=== PATIENT | male | born 1965 | race African-American/Black ===

== ENCOUNTER 2018-10-16 10:27 | Inpatient (IN) | payer OTHER ==
[2018-10-16 11:15] VITALS: BMI 21.6
--- NOTE | 2018-10-16 12:34 | HP ---
CIWA Score Nausea/Vomitin Muscle Tremors: 4-Moderate,w/Arms Extend Anxiety: 4-Mod. Anxious/Guarded Agitation: 1-Slight > Activity Paroxysmal Sweats: No Perspiration Orientation: 1-Uncertain about Date Tacttile Disturbances: 1-Very Mild Itch/Numbness Auditory Disturbances: 1-Very Mild Visual Disturbances: 1-Very Mild Sensitivity Headache: 2-Mild CIWA-Ar Total Score: 17 - Admission Criteria OASAS Guidelines: Admission for Medically Managed Detox: Requires at least one of the followin. CIWA greater than 12 2. Seizures within the past 24 hours 3. Delirium tremens within the past 24 hours 4. Hallucinations within the past 24 hours 5. Acute intervention needed for co occurring medical disorder 6. Acute intervention needed for co occurring psychiatric disorder 7. Severe withdrawal that cannot be handled at a lower level of care (continued vomiting, continued diarrhea, abnormal vital signs) requiring intravenous medication and/or fluids 8. Patient presents the following: CIWA greater than 12 Admission Criteria Met: Admission criteria met Admission ROS [facility] - [facility] Chief Complaint: I want detox from alcohol Allergies/Adverse Reactions: Allergies Allergy/AdvReac Type Severity Reaction Status Date / Time No Known Allergies Allergy Verified 10/16/18 12:31 History of Present Illness: 53 yo gentleman first time here for detox from alcohol, also using cocaine and marijuana. Denies seizures but has had black outs and drinks first thing in the morning. Patient has had several admissions for detox elsewhere. He reports a history of depression, bipolar and suicide attempt. Meds verified by myself with pharmacy. Exam Limitations: No Limitations - Ebola screening Have you traveled outside of the country in the last 21 days: No (N) Have you had contact with anyone from an Ebola affected area: No Have you been sick,other than usual withdrawal symptoms: No Do you have a fever: No - Review of Systems Constitutional: Loss of Appetite, Malaise, Changes in sleep EENT: reports: No Symptoms Reported Respiratory: reports: No Symptoms reported Cardiac: reports: No Symptoms Reported GI: reports: Nausea, Poor Appetite, Indigestion Musculoskeletal: reports: No Symptoms Reported Integumentary: reports: Dryness Neuro: reports: Headache, Tremors Endocrine: reports: No Symptoms Reported Hematology: reports: No Symptoms Reported Psychiatric: reports: Judgement Intact, Mood/Affect Appropiate, Orientated x3, Anxious Other Systems: Reviewed and Negative Patient History - Patient Medical History Hx Anemia: No Hx Asthma: Yes (hx inhalers ) Hx Chronic Obstructive Pulmonary Disease (COPD): No Hx Cancer: No Hx Congestive Heart Failure: No Hx Hypertension: No Hx Hypercholesterolemia: No Hx Pacemaker: No Hx Seizures: No Hx Diabetes: No Hx Gastrointestinal Disorders: Yes (hx perforated ulcer september 2018 (surgery)) Hx Liver Disease: No Hx Genitourinary Disorders: No Hx Sexually Transmitted Disorders: No Hx Renal Disease (ESRD): No Hx Thyroid Disease: No Hx Human Immunodeficiency Virus (HIV): No Hx Hepatitis C: No Hx Depression: Yes (hospitalized [facility] 2009) Hx Suicide Attempt: Yes (2009 (pills)) Hx Bipolar Disorder: Yes Hx Schizophrenia: Yes - Patient Surgical History Hx Abdominal Surgery: Yes (stomach ulcer repair 09/2018; abdominal hernia 2009) - PPD History Previous Implant?: Yes Documented Results: Negative w/o proof PPD to be Administered?: Yes - Reproductive History Patient is a Female of Child Bearing Age (11 -55 yrs old): No (male) - Smoking Cessation Smoking history: Former smoker Have you smoked in the past 12 months: No Initiated information on smoking cessation: No - Substance & Tx. History Hx Alcohol Use: Yes Hx Substance Use: Yes Substance Use Type: Alcohol, Cocaine, Marijuana Hx Substance Use Treatment: Yes (detox, rehab) - Substances Abused alcohol Route: Oral Frequency: Daily Amount used: 1 pint vodka; two 12 oz cans beer Age of first use: 12 Date of Last Use: 10/16/18 cocaine Route: Inhalation Frequency: 3-6 times per week Amount used: $20 Age of first use: 21 Date of Last Use: 10/13/18 marijuan Route: Smoking Frequency: Daily Amount used: $10 Age of first use: 7 Date of Last Use: 10/16/18 Family Disease History - Family Disease History Family Disease History: Diabetes: Brother (two - living, ), [place]: Mother ( ), Other: Father (, no contact), Mother, Brother, Sister (one - healthy), Daughter (one age 13 - healthy) Admission Physical Exam BHS - Vital Signs Vital Signs: Vital Signs - 24 hr 10/16/18 11:03 Temperature 98.6 F Pulse Rate 82 Respiratory 18 Rate Blood Pressure 116/84 - Physical General Appearance: Yes: Nourished, Appropriately Dressed, Mild Distress, Moderate Distress, Tremorous, Irritable, Anxious HEENTM: Yes: EOMI, Hearing grossly Normal, Normocephalic, Normal Voice, Pharynx Normal Respiratory: Yes: No Respiratory Distress, Wheezing Neck: Yes: No masses,lesions,Nodules, Supple Breast: Yes: Breast Exam Deferred Cardiology: Yes: Regular Rhythm, Regular Rate Abdominal: Yes: Flat, Soft Genitourinary: Yes: Frequency Back: Yes: Normal Inspection Musculoskeletal: Yes: full range of Motion, Gait Steady Extremities: Yes: Normal Inspection, Normal Range of Motion, Non-Tender Neurological: Yes: Alert, Motor Strength 5/5, Normal Mood/Affect, Normal Response Integumentary: Yes: Normal Color, Dry, Warm Lymphatic: Yes: Within Normal Limits - Diagnostic (1) Alcohol dependence with uncomplicated withdrawal Current Visit: Yes Status: Chronic (2) History of gastric ulcer Current Visit: Yes Status: Resolved Comment: required surgery and several weeks in hospital in September 2018 (3) Asthma Current Visit: Yes Status: Chronic Qualifiers: Asthma severity: moderate Asthma persistence: persistent Asthma complication type: uncomplicated Qualified Code(s): J45.40 - Moderate persistent asthma, uncomplicated Cleared for Admission [facility] - Detox or Rehab [facility] Level of Care: Medically Managed Detox Regimen/Protocol: Librium [facility] Breath Alcohol Content Breath Alcohol Content: 0.010 Urine Drug Screen - Results Drug Screen Negative: No Urine Drug Screen Results: THC-Marijuana, ALICE-Cocaine Inpatient Rehab Admission - Rehab Decision to Admit Inpatient rehab admission?: No
[2018-10-16] MEDS ORDERED: hydrOXYzine PAMOATE 25 MG CAPSULE (FP) PO PRN (12:58)
[2018-10-16] MEDS ORDERED: BACLOFEN 10 MG TABLET (FP) PO PRN (12:58)
[2018-10-16] MEDS ORDERED: ACETAMINOPHEN 325 MG TABLET (FP) PO PRN (12:58)
[2018-10-16] MEDS ORDERED: MELATONIN 5 MG TABLETS PO PRN (12:58)
[2018-10-16] MEDS ORDERED: MAGNESIUM HYDROX 2400MG/30ML ORAL SUSPENSION 30 ML CUP PO PRN (12:58)
[2018-10-16] MEDS ORDERED: MENTHOL/PHENOL 1 EACH UD MM PRN (12:58)
[2018-10-16] MEDS ORDERED: chlordiazePOXIDE HCL 25 MG CAPSULE PO PRN (12:58)
[2018-10-16] MEDS ORDERED: ALBUTEROL SO4 8 GM HFA INHALER IH PRN (13:01)
[2018-10-16] MEDS ORDERED: chlordiazePOXIDE HCL 25 MG CAPSULE PO ONE (14:30)
[2018-10-16] MEDS: PANTOPRAZOLE 40 MG TABLET (FP) PO SCH (15:01)
[2018-10-16] MEDS: POLYETHYLENE GLYCOL 3350 119 GM BTL PO SCH ×2 (15:07→22:40)
[2018-10-16] MEDS: chlordiazePOXIDE HCL 25 MG CAPSULE PO SCH ×2 (17:12→22:39)
[2018-10-16] MEDS: THIAMINE HCL 100 MG TABLET (FP) PO SCH (22:39)
[2018-10-17] MEDS: chlordiazePOXIDE HCL 25 MG CAPSULE PO SCH ×4 (06:02→22:37)
--- NOTE | 2018-10-17 09:55 | CONSULT ---
[facility] Psychiatric Consult - Data Date of interview: 10/17/18 Admission source: [facility] Identifying data: Patient is a 53 y/o male single, unemployed, domiciled, live with a roomate, father of a girl, SSI reccipient Substance Abuse History: Admitted to the unit for a history of ETOH, marijuana and cocaine dependence , He drinks Vodka daily and beers , use cocaine 3-4 times / week daily use of marijuana. He reports black out spells, no seizure. 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 This is his melody detox admission @ [facility], he has had numerous past Detox treatment at several Detox facilities. His last Detox admission was @ [facility]. Refer to addiction counselor note for more detailed and relevant drug history Medical History: Meidcal history is significant for moderate intermittent Asthma. Recent past surgical history of gastric ulcer repaired. History of abdominal hernia in 2009 Psychiatric History: Patient has a history of Bipolar depression, he had one hospital admission @ [facility] in 2009 due to a suicide attempt he overdosed with pills. He receives out patient care at [facility] and medciated with Seroquel 100 mg po q hs and celexa 20 mg po daily. Curently he denies psychosis, kamala, or mood swings, reports depression and insomnia. He denies suicidal or homicidal ideation Physical/Sexual Abuse/Trauma History: Denied Mental Status Exam - Mental Status Exam Cognitive Function: Grossly Intact Patient Appearance: Unkempt Mood: Suspicious, Irritable Affect: Constricted Patient Behavior: Suspicious, Cooperative Speech Pattern: Clear Voice Loudness: Mildly Loud Thought Process: Intact Thought Disorder: Not Present Hallucinations: Denies Suicidal Ideation: Denies Homicidal Ideation: Denies Insight/Judgement: Poor Sleep: Poorly Appetite: Fair Muscle strength/Tone: Normal Gait/Station: Normal Psychiatric Findings - Problem List ([place] 1, 2,3) (1) Bipolar disorder with depression Current Visit: Yes Status: Acute (2) Alcohol dependence with uncomplicated withdrawal Current Visit: Yes Status: Chronic (3) Asthma Current Visit: Yes Status: Chronic Qualifiers: Asthma severity: moderate Asthma persistence: persistent Asthma complication type: uncomplicated Qualified Code(s): J45.40 - Moderate persistent asthma, uncomplicated (4) History of gastric ulcer Current Visit: Yes Status: Resolved Comment: required surgery and several weeks in hospital in September 2018 - Initial Treatment Plan Initial Treatment Plan: Continue detox treatment. Psychoseduation. Sleep hygiene. Seroquel 100 mg po q hs. Celexa 20 mg po daily. Monitor response
[2018-10-17] MEDS: PANTOPRAZOLE 40 MG TABLET (FP) PO SCH (10:12)
[2018-10-17] MEDS: POLYETHYLENE GLYCOL 3350 119 GM BTL PO SCH ×2 (10:12→22:35)
[2018-10-17] MEDS: PRENATAL VITAMINS W/ FOLIC ACID TABLET (FP) PO SCH (10:12)
[2018-10-17 11:14] LABS: ALBUMIN 2.8 g/dl (3.4-5.0); ALK PHOS 67 U/L (45-117); ANION GAP 4 MMOL/L (8-16); BILIRUBIN,TOTAL 0.2 mg/dL (0.2-1); BLOOD UREA NITROGEN 14 mg/dL (7-18); CALCIUM 8.5 mg/dL (8.5-10.1); CHLORIDE 110 mmol/L (98-107); CO2 28 mmol/L (21-32); GLUCOSE,RANDOM 83 mg/dL (74-106); POTASSIUM 4.1 mmol/L (3.5-5.1); SGOT/AST 27 U/L (15-37); SGPT/ALT 29 U/L (13-61); SODIUM 142 mmol/L (136-145); TOT PROT 6.6 g/dl (6.4-8.2)
[2018-10-17 11:24] LABS: HEMOGLOBIN 12.5 GM/dL (11.7-16.9); MCH 27.9 pg (25.7-33.7); MCHC 32.9 g/dl (32.0-35.9); MEAN CELL VOLUME 84.7 fl (80-96); MEAN PLT VOLUME 9.9 fl (7.5-11.1); PLATELET COUNT 204 K/MM3 (134-434); RBC 4.49 M/mm3 (4.00-5.60); RDW 15.1 % (11.9-15.9)
[2018-10-17] MEDS: CITALOPRAM HYDROBROMIDE 20 MG TABLET (FP) PO SCH (13:19)
--- NOTE | 2018-10-17 14:44 | PN ---
S CIWA - CIWA Score Nausea/Vomitin-No Nausea/No Vomiting Muscle Tremors: 3 Anxiety: 1-Mildly Anxious Agitation: 2 Paroxysmal Sweats: 1-Minimal Palms Moist Orientation: 3-Disoriented Date>2 days Tacttile Disturbances: 0-None Auditory Disturbances: 0-None Visual Disturbances: 0-None Headache: 2-Mild CIWA-Ar Total Score: 12 S Progress Note (SOAP) Subjective: tremor sweating restlessness trouble sleep at night Objective: 10/17/18 14:48 Vital Signs Temperature 97.4 F L 10/17/18 13:47 Pulse Rate 71 10/17/18 13:47 Respiratory Rate 20 10/17/18 13:47 Blood Pressure 157/101 H 10/17/18 13:47 O2 Sat by Pulse Oximetry (%) Laboratory Last Values WBC 4.0 K/mm3 (4.0-10.0) 10/17/18 07:35 RBC 4.49 M/mm3 (4.00-5.60) 10/17/18 07:35 Hgb 12.5 GM/dL (11.7-16.9) 10/17/18 07:35 Hct 38.0 % (35.4-49) 10/17/18 07:35 MCV 84.7 fl (80-96) 10/17/18 07:35 MCH 27.9 pg (25.7-33.7) 10/17/18 07:35 MCHC 32.9 g/dl (32.0-35.9) 10/17/18 07:35 RDW 15.1 % (11.9-15.9) 10/17/18 07:35 Plt Count 204 K/MM3 (134-434) 10/17/18 07:35 MPV 9.9 fl (7.5-11.1) 10/17/18 07:35 Sodium 142 mmol/L (136-145) 10/17/18 07:35 Potassium 4.1 mmol/L (3.5-5.1) 10/17/18 07:35 Chloride 110 mmol/L (98-107) H 10/17/18 07:35 Carbon Dioxide 28 mmol/L (21-32) 10/17/18 07:35 Anion Gap 4 MMOL/L (8-16) L 10/17/18 07:35 BUN 14 mg/dL (7-18) 10/17/18 07:35 Creatinine 1.0 mg/dL (0.55-1.3) 10/17/18 07:35 Creat Clearance w eGFR 77.58 (>60) 10/17/18 07:35 Random Glucose 83 mg/dL (74-106) 10/17/18 07:35 Calcium 8.5 mg/dL (8.5-10.1) 10/17/18 07:35 Total Bilirubin 0.2 mg/dL (0.2-1) 10/17/18 07:35 AST 27 U/L (15-37) 10/17/18 07:35 ALT 29 U/L (13-61) 10/17/18 07:35 Alkaline Phosphatase 67 U/L (45-117) 10/17/18 07:35 Total Protein 6.6 g/dl (6.4-8.2) 10/17/18 07:35 Albumin 2.8 g/dl (3.4-5.0) L 10/17/18 07:35 RPR Titer Nonreactive (NONREACTIVE) 10/17/18 07:35 lab noted Assessment: 10/17/18 14:48 alcohol withdrawal sx Plan: continue detox
[2018-10-17] MEDS: THIAMINE HCL 100 MG TABLET (FP) PO SCH (22:33)
[2018-10-17] MEDS: QUEtiapine FUMARATE 100 MG TABLET (FP) PO SCH (22:34)
--- NOTE | 2018-10-17 23:48 | PN ---
[facility] Progress Note Note: I was called by the nurse, Ms. Alana Islas to evaluate a patient who was upset because she wanted to open his librium prior to administration. He was seen and evaluated in his room. Nursing machining and assembly supervisor Ms. Alysia Benito wanted patient to be either transferred to [place] or administratively discharged. Patient has a history of schizophrenia and Bipolar but is not a danger to himself or others at this time. He is medically stable at this time and there is no psychiatric incident to send patient out at this time. Risks and consequences of his action discussed with patient. Will continue to monitor patient Vital Signs Temperature 98.1 F 10/17/18 21:31 Pulse Rate 80 10/17/18 21:31 Respiratory Rate 18 10/17/18 21:31 Blood Pressure 142/98 10/17/18 21:31 O2 Sat by Pulse Oximetry (%) Laboratory Last Values WBC 4.0 K/mm3 (4.0-10.0) 10/17/18 07:35 RBC 4.49 M/mm3 (4.00-5.60) 10/17/18 07:35 Hgb 12.5 GM/dL (11.7-16.9) 10/17/18 07:35 Hct 38.0 % (35.4-49) 10/17/18 07:35 MCV 84.7 fl (80-96) 10/17/18 07:35 MCH 27.9 pg (25.7-33.7) 10/17/18 07:35 MCHC 32.9 g/dl (32.0-35.9) 10/17/18 07:35 RDW 15.1 % (11.9-15.9) 10/17/18 07:35 Plt Count 204 K/MM3 (134-434) 10/17/18 07:35 MPV 9.9 fl (7.5-11.1) 10/17/18 07:35 Sodium 142 mmol/L (136-145) 10/17/18 07:35 Potassium 4.1 mmol/L (3.5-5.1) 10/17/18 07:35 Chloride 110 mmol/L (98-107) H 10/17/18 07:35 Carbon Dioxide 28 mmol/L (21-32) 10/17/18 07:35 Anion Gap 4 MMOL/L (8-16) L 10/17/18 07:35 BUN 14 mg/dL (7-18) 10/17/18 07:35 Creatinine 1.0 mg/dL (0.55-1.3) 10/17/18 07:35 Creat Clearance w eGFR 77.58 (>60) 10/17/18 07:35 Random Glucose 83 mg/dL (74-106) 10/17/18 07:35 Calcium 8.5 mg/dL (8.5-10.1) 10/17/18 07:35 Total Bilirubin 0.2 mg/dL (0.2-1) 10/17/18 07:35 AST 27 U/L (15-37) 10/17/18 07:35 ALT 29 U/L (13-61) 10/17/18 07:35 Alkaline Phosphatase 67 U/L (45-117) 10/17/18 07:35 Total Protein 6.6 g/dl (6.4-8.2) 10/17/18 07:35 Albumin 2.8 g/dl (3.4-5.0) L 10/17/18 07:35 RPR Titer Nonreactive (NONREACTIVE) 10/17/18 07:35
[2018-10-18] MEDS: chlordiazePOXIDE HCL 25 MG CAPSULE PO SCH ×2 (06:55→10:24)
[2018-10-18] MEDS: POLYETHYLENE GLYCOL 3350 119 GM BTL PO SCH ×2 (10:23→22:41)
[2018-10-18] MEDS: PRENATAL VITAMINS W/ FOLIC ACID TABLET (FP) PO SCH (10:23)
[2018-10-18] MEDS: PANTOPRAZOLE 40 MG TABLET (FP) PO SCH (10:23)
[2018-10-18] MEDS: CITALOPRAM HYDROBROMIDE 20 MG TABLET (FP) PO SCH (10:23)
--- NOTE | 2018-10-18 12:06 | PN ---
S CIWA - CIWA Score Nausea/Vomitin-No Nausea/No Vomiting Muscle Tremors: 2 Anxiety: 2 Agitation: 1-Slight > Activity Paroxysmal Sweats: 1-Minimal Palms Moist Orientation: 2-Disoriented Date<2 days Tacttile Disturbances: 0-None Auditory Disturbances: 0-None Visual Disturbances: 0-None Headache: 0-None Present CIWA-Ar Total Score: 8 BHS Progress Note (SOAP) Subjective: tremor sweating requesting librium swallow as whole Objective: 10/18/18 12:08 Vital Signs Temperature 98.2 F 10/18/18 09:03 Pulse Rate 74 10/18/18 09:03 Respiratory Rate 18 10/18/18 09:03 Blood Pressure 122/76 10/18/18 09:03 O2 Sat by Pulse Oximetry (%) Laboratory Last Values WBC 4.0 K/mm3 (4.0-10.0) 10/17/18 07:35 RBC 4.49 M/mm3 (4.00-5.60) 10/17/18 07:35 Hgb 12.5 GM/dL (11.7-16.9) 10/17/18 07:35 Hct 38.0 % (35.4-49) 10/17/18 07:35 MCV 84.7 fl (80-96) 10/17/18 07:35 MCH 27.9 pg (25.7-33.7) 10/17/18 07:35 MCHC 32.9 g/dl (32.0-35.9) 10/17/18 07:35 RDW 15.1 % (11.9-15.9) 10/17/18 07:35 Plt Count 204 K/MM3 (134-434) 10/17/18 07:35 MPV 9.9 fl (7.5-11.1) 10/17/18 07:35 Sodium 142 mmol/L (136-145) 10/17/18 07:35 Potassium 4.1 mmol/L (3.5-5.1) 10/17/18 07:35 Chloride 110 mmol/L (98-107) H 10/17/18 07:35 Carbon Dioxide 28 mmol/L (21-32) 10/17/18 07:35 Anion Gap 4 MMOL/L (8-16) L 10/17/18 07:35 BUN 14 mg/dL (7-18) 10/17/18 07:35 Creatinine 1.0 mg/dL (0.55-1.3) 10/17/18 07:35 Creat Clearance w eGFR 77.58 (>60) 10/17/18 07:35 Random Glucose 83 mg/dL (74-106) 10/17/18 07:35 Calcium 8.5 mg/dL (8.5-10.1) 10/17/18 07:35 Total Bilirubin 0.2 mg/dL (0.2-1) 10/17/18 07:35 AST 27 U/L (15-37) 10/17/18 07:35 ALT 29 U/L (13-61) 10/17/18 07:35 Alkaline Phosphatase 67 U/L (45-117) 10/17/18 07:35 Total Protein 6.6 g/dl (6.4-8.2) 10/17/18 07:35 Albumin 2.8 g/dl (3.4-5.0) L 10/17/18 07:35 RPR Titer Nonreactive (NONREACTIVE) 10/17/18 07:35 lab noted Assessment: 10/18/18 12:08 withdrawal sx Plan: continue detox
[2018-10-18] MEDS ORDERED: chlordiazePOXIDE HCL 10 MG CAPSULE PO PRN (17:00)
[2018-10-18] MEDS: chlordiazePOXIDE HCL 10 MG CAPSULE PO SCH ×2 (17:16→22:16)
[2018-10-18] MEDS: THIAMINE HCL 100 MG TABLET (FP) PO SCH (22:16)
[2018-10-18] MEDS: QUEtiapine FUMARATE 100 MG TABLET (FP) PO SCH (22:16)
[2018-10-19] MEDS: chlordiazePOXIDE HCL 10 MG CAPSULE PO SCH ×2 (06:50→11:38)
[2018-10-19] MEDS ORDERED: LISINOPRIL 5 MG TABLET (FP) PO SCH (10:00)
--- NOTE | 2018-10-19 10:00 | PN ---
S CIWA - CIWA Score Nausea/Vomitin-No Nausea/No Vomiting Muscle Tremors: 1-None Visible, but [place] Anxiety: 1-Mildly Anxious Agitation: 1-Slight > Activity Paroxysmal Sweats: No Perspiration Orientation: 0-Oriented Tacttile Disturbances: 0-None Auditory Disturbances: 0-None Visual Disturbances: 0-None Headache: 0-None Present CIWA-Ar Total Score: 3 BHS Progress Note (SOAP) Subjective: feeling better less tremor mild sweating social with peers in day room reporting doing well with the detox regimen Objective: 10/19/18 10:03 Vital Signs Temperature 96.4 F L 10/19/18 09:26 Pulse Rate 70 10/19/18 09:26 Respiratory Rate 18 10/19/18 09:26 Blood Pressure 146/90 10/19/18 09:26 O2 Sat by Pulse Oximetry (%) Laboratory Last Values WBC 4.0 K/mm3 (4.0-10.0) 10/17/18 07:35 RBC 4.49 M/mm3 (4.00-5.60) 10/17/18 07:35 Hgb 12.5 GM/dL (11.7-16.9) 10/17/18 07:35 Hct 38.0 % (35.4-49) 10/17/18 07:35 MCV 84.7 fl (80-96) 10/17/18 07:35 MCH 27.9 pg (25.7-33.7) 10/17/18 07:35 MCHC 32.9 g/dl (32.0-35.9) 10/17/18 07:35 RDW 15.1 % (11.9-15.9) 10/17/18 07:35 Plt Count 204 K/MM3 (134-434) 10/17/18 07:35 MPV 9.9 fl (7.5-11.1) 10/17/18 07:35 Sodium 142 mmol/L (136-145) 10/17/18 07:35 Potassium 4.1 mmol/L (3.5-5.1) 10/17/18 07:35 Chloride 110 mmol/L (98-107) H 10/17/18 07:35 Carbon Dioxide 28 mmol/L (21-32) 10/17/18 07:35 Anion Gap 4 MMOL/L (8-16) L 10/17/18 07:35 BUN 14 mg/dL (7-18) 10/17/18 07:35 Creatinine 1.0 mg/dL (0.55-1.3) 10/17/18 07:35 Creat Clearance w eGFR 77.58 (>60) 10/17/18 07:35 Random Glucose 83 mg/dL (74-106) 10/17/18 07:35 Calcium 8.5 mg/dL (8.5-10.1) 10/17/18 07:35 Total Bilirubin 0.2 mg/dL (0.2-1) 10/17/18 07:35 AST 27 U/L (15-37) 10/17/18 07:35 ALT 29 U/L (13-61) 10/17/18 07:35 Alkaline Phosphatase 67 U/L (45-117) 10/17/18 07:35 Total Protein 6.6 g/dl (6.4-8.2) 10/17/18 07:35 Albumin 2.8 g/dl (3.4-5.0) L 10/17/18 07:35 RPR Titer Nonreactive (NONREACTIVE) 10/17/18 07:35 lab noted begin lisinopril 5 mg daily Assessment: 10/19/18 10:04 mild alcohol withdrawal sx Plan: continue deox
[2018-10-19 11:29] LABS: URINE APPEARANCE CLEAR; URINE BILIRUBIN NEGATIVE (<2.0 mg/dL); URINE COLOR LTYELLOW; URINE GLUCOSE (UA) NEGATIVE (NEGATIVE); URINE KETONE NEGATIVE (NEGATIVE); URINE LEUK ESTERASE NEGATIVE (NEGATIVE); URINE NITRITE NEGATIVE (NEGATIVE); URINE PROTEIN NEGATIVE (NEGATIVE); URINE UROBILINOGEN NEGATIVE mg/dL (0.2-1.0)
[2018-10-19] MEDS: CITALOPRAM HYDROBROMIDE 20 MG TABLET (FP) PO SCH (11:38)
[2018-10-19] MEDS: PANTOPRAZOLE 40 MG TABLET (FP) PO SCH (11:38)
[2018-10-19] MEDS: PRENATAL VITAMINS W/ FOLIC ACID TABLET (FP) PO SCH (11:39)
[2018-10-19 13:36] VITALS: BP 143/95; PULSE 78; TEMP 97
[2018-10-19] MEDS: POLYETHYLENE GLYCOL 3350 119 GM BTL PO SCH (15:29)
--- NOTE | 2018-10-19 15:54 | DS ---
[facility] Detox Discharge Summary Admission Date: 10/16/18 Discharge Date: 10/19/18 - History Present History: Alcohol Dependence Additional Comments: 53 years old male admitted 10/16/18 for alcohol withdrawal stabilization after lunch and nap reporting feeling better preferring alcohol rehab today patent is alert no acute distress denies suicidal ideation - Physical Exam Results Vital Signs: Vital Signs Temperature 97.0 F L 10/19/18 13:34 Pulse Rate 78 10/19/18 13:34 Respiratory Rate 20 10/19/18 13:34 Blood Pressure 143/95 10/19/18 13:34 O2 Sat by Pulse Oximetry (%) Pertinent Admission Physical Exam Findings: alohol withdrawal sx Laboratory Last Values WBC 4.0 K/mm3 (4.0-10.0) 10/17/18 07:35 RBC 4.49 M/mm3 (4.00-5.60) 10/17/18 07:35 Hgb 12.5 GM/dL (11.7-16.9) 10/17/18 07:35 Hct 38.0 % (35.4-49) 10/17/18 07:35 MCV 84.7 fl (80-96) 10/17/18 07:35 MCH 27.9 pg (25.7-33.7) 10/17/18 07:35 MCHC 32.9 g/dl (32.0-35.9) 10/17/18 07:35 RDW 15.1 % (11.9-15.9) 10/17/18 07:35 Plt Count 204 K/MM3 (134-434) 10/17/18 07:35 MPV 9.9 fl (7.5-11.1) 10/17/18 07:35 Sodium 142 mmol/L (136-145) 10/17/18 07:35 Potassium 4.1 mmol/L (3.5-5.1) 10/17/18 07:35 Chloride 110 mmol/L (98-107) H 10/17/18 07:35 Carbon Dioxide 28 mmol/L (21-32) 10/17/18 07:35 Anion Gap 4 MMOL/L (8-16) L 10/17/18 07:35 BUN 14 mg/dL (7-18) 10/17/18 07:35 Creatinine 1.0 mg/dL (0.55-1.3) 10/17/18 07:35 Creat Clearance w eGFR 77.58 (>60) 10/17/18 07:35 Random Glucose 83 mg/dL (74-106) 10/17/18 07:35 Calcium 8.5 mg/dL (8.5-10.1) 10/17/18 07:35 Total Bilirubin 0.2 mg/dL (0.2-1) 10/17/18 07:35 AST 27 U/L (15-37) 10/17/18 07:35 ALT 29 U/L (13-61) 10/17/18 07:35 Alkaline Phosphatase 67 U/L (45-117) 10/17/18 07:35 Total Protein 6.6 g/dl (6.4-8.2) 10/17/18 07:35 Albumin 2.8 g/dl (3.4-5.0) L 10/17/18 07:35 Urine Color Ltyellow 10/19/18 10:20 Urine Appearance Clear 10/19/18 10:20 Urine pH 6.0 (5.0-8.0) 10/19/18 10:20 Ur Specific [place] 1.017 (1.010-1.035) 10/19/18 10:20 Urine Protein Negative (NEGATIVE) 10/19/18 10:20 Urine Glucose (UA) Negative (NEGATIVE) 10/19/18 10:20 Urine Ketones Negative (NEGATIVE) 10/19/18 10:20 Urine Blood Negative (NEGATIVE) 10/19/18 10:20 Urine Nitrite Negative (NEGATIVE) 10/19/18 10:20 Urine Bilirubin Negative (<2.0 mg/dL) 10/19/18 10:20 Urine Urobilinogen Negative mg/dL (0.2-1.0) 10/19/18 10:20 Ur Leukocyte Esterase Negative (NEGATIVE) 10/19/18 10:20 RPR Titer Nonreactive (NONREACTIVE) 10/17/18 07:35 lab noted - Treatment Hospital Course: Detox Protocol Followed, Detoxed Safely, Responded well, Discharged Condition Good, Rehab Referral Accepted - Medication Discharge Medications: Ambulatory Orders Citalopram Hydrobromide [Celexa -] 20 mg PO DAILY 10/16/18 Pantoprazole Sodium [Protonix] 40 mg PO DAILY 10/16/18 Quetiapine Fumarate [Seroquel] 100 tab PO BID 10/16/18 Albuterol Sulfate Inhaler - [Ventolin HFA Inhaler -] 2 puff IH Q4H PRN #1 inhaler 10/19/18 Lisinopril 5 mg PO DAILY 10/19/18 Lisinopril [Prinivil] 5 mg PO DAILY #14 tablet 10/19/18 - Diagnosis (1) Alcohol dependence with uncomplicated withdrawal Current Visit: Yes Status: Acute (2) Asthma Current Visit: Yes Status: Chronic Qualifiers: Asthma severity: mild Asthma persistence: intermittent Asthma complication type: uncomplicated Qualified Code(s): J45.20 - Mild intermittent asthma, uncomplicated (3) Hypertension Current Visit: Yes Status: Chronic Qualifiers: Hypertension type: essential hypertension Qualified Code(s): I10 - Essential (primary) hypertension (4) GERD (gastroesophageal reflux disease) Current Visit: Yes Status: Chronic Qualifiers: Esophagitis presence: without esophagitis Qualified Code(s): K21.9 - Gastro -esophageal reflux disease without esophagitis - AMA Did Patient Leave Against Medical Advice: No
[2018-10-19] MEDS ORDERED: chlordiazePOXIDE HCL 10 MG CAPSULE PO SCH (17:00)
== END 2018-10-19 16:15 | disposition home or self-care (01) | DRG 774 ==
LOC: YASAS 10:27 → Y3N 14:20
PROVIDERS: ADMIT Surgery; ATTEND Surgery
PROC: HZ2ZZZZ Detoxification Services for Substance Abuse Treatment (ICD-10-PCS; principal; 2018-10-16)
DX: F10.230 Alcohol dependence with withdrawal, uncomplicated (principal); F14.10 Cocaine abuse, uncomplicated; F12.10 Cannabis abuse, uncomplicated; F31.9 Bipolar disorder, unspecified; I10 Essential (primary) hypertension; K21.9 Gastro-esophageal reflux disease without esophagitis; J45.20 Mild intermittent asthma, uncomplicated; Z87.19 Personal history of other diseases of the digestive system; Z91.5 Personal history of self-harm
CPT/HCPCS: 36415; 80053; 81003; 85027; 86593

== ENCOUNTER 2019-01-15 15:06 | Inpatient (IN) | payer OTHER ==
[2019-01-15 17:21] VITALS: BMI 22.8
--- NOTE | 2019-01-15 18:59 | HP ---
CIWA Score Nausea/Vomitin Muscle Tremors: 2 Anxiety: 2 Agitation: 2 Paroxysmal Sweats: 2 Orientation: 0-Oriented Tacttile Disturbances: 2-Mild Itch/Numbness/Burn Auditory Disturbances: 0-None Visual Disturbances: 2-Mild Sensitivity Headache: 0-None Present CIWA-Ar Total Score: 14 - Admission Criteria OASAS Guidelines: Admission for Medically Managed Detox: Requires at least one of the followin. CIWA greater than 12 2. Seizures within the past 24 hours 3. Delirium tremens within the past 24 hours 4. Hallucinations within the past 24 hours 5. Acute intervention needed for co occurring medical disorder 6. Acute intervention needed for co occurring psychiatric disorder 7. Severe withdrawal that cannot be handled at a lower level of care (continued vomiting, continued diarrhea, abnormal vital signs) requiring intravenous medication and/or fluids 8. Patient presents the following: CIWA greater than 12 Admission Criteria Met: Admission criteria met Admission ROS [facility] Chief Complaint: I need to stop using illegal substances Allergies/Adverse Reactions: Allergies Allergy/AdvReac Type Severity Reaction Status Date / Time No Known Allergies Allergy Verified 01/15/19 17:07 History of Present Illness: Patient is a 53 years old man who presents for detox, his most recent detox was in October of this year at this facility. He denies seizures but has had black outs and drinks first thing in the morning. Patient has had several admissions for detox in other facilities. He has expressed an interest in rehab following his detox. Exam Limitations: No Limitations - Ebola screening Have you traveled outside of the country in the last 21 days: No (N) Have you had contact with anyone from an Ebola affected area: No Have you been sick,other than usual withdrawal symptoms: No Do you have a fever: No - Review of Systems Constitutional: Chills, Changes in sleep, Unintentional Wgt. Loss EENT: reports: No Symptoms Reported Respiratory: reports: No Symptoms reported Cardiac: reports: No Symptoms Reported GI: reports: Nausea, Poor Fluid Intake, Abdominal cramping : reports: No Symptoms Reported Musculoskeletal: reports: Back Pain, Joint Pain, Muscle Pain Integumentary: reports: Flushing, Rash (diffuse) Neuro: reports: Numbness, Tremors Endocrine: reports: No Symptoms Reported Hematology: reports: Anemia Psychiatric: reports: Orientated x3, Anxious, Depressed Other Systems: Reviewed and Negative Patient History - Patient Medical History Hx Anemia: No Hx Asthma: Yes Hx Chronic Obstructive Pulmonary Disease (COPD): No Hx Cancer: No Hx Congestive Heart Failure: No Hx Hypertension: No Hx Hypercholesterolemia: No Hx Pacemaker: No Hx Seizures: No Hx Diabetes: No Hx Gastrointestinal Disorders: Yes (hx perforated ulcer september 2018 (surgery)) Hx Liver Disease: No Hx Genitourinary Disorders: No Hx Sexually Transmitted Disorders: No Hx Renal Disease (ESRD): No Hx Thyroid Disease: No Hx Human Immunodeficiency Virus (HIV): No Hx Hepatitis C: No Hx Depression: Yes (hospitalized [facility] 2009) Hx Suicide Attempt: Yes (2009 (pills)) Hx Bipolar Disorder: Yes Hx Schizophrenia: Yes - Patient Surgical History Past Surgical History: Yes Hx Abdominal Surgery: Yes (stomach ulcer repair 09/2018; abdominal hernia 2009) Anesthesia Reaction: No - PPD History Previous Implant?: Yes Documented Results: Negative w/proof Implanted On Prior R Admission?: Yes Date: 10/18/18 Results: negative PPD to be Administered?: No - Smoking Cessation Smoking history: Current every day smoker Have you smoked in the past 12 months: Yes Aproximately how many cigarettes per day: 2 Hx Chewing Tobacco Use: No Initiated information on smoking cessation: Yes 'Breaking Loose' booklet given: 01/15/19 - Substance & Tx. History Hx Alcohol Use: Yes Hx Substance Use: Yes Substance Use Type: Alcohol, Cocaine, Marijuana Hx Substance Use Treatment: Yes - Substances abused Marijuana/Hashish Substance route: Smoking Frequency: Daily Amount used: 5 Age of first use: 7 Date of last use: 01/15/19 Alcohol Substance route: Oral Frequency: Daily Amount used: 2 (12) oz, 1 pint Age of first use: 10 Date of last use: 01/15/19 Cocaine Substance route: Inhalation Frequency: 1-3 times last 30 days Amount used: 1 gram Age of first use: 12 Date of last use: 01/15/19 Crack Substance route: Smoking Frequency: 3-6 times per week Amount used: $50 Age of first use: 21 Date of last use: 01/15/19 Family Disease History - Family Disease History Family Disease History: Diabetes: Brother (two - living, ), CA: Mother ( ), Other: Father (, no contact), Mother, Brother, Sister (one - healthy), Daughter (one age 13 - healthy) Admission Physical Exam [facility] - Vital Signs Vital Signs: Vital Signs - 24 hr 01/15/19 01/15/19 17:04 18:03 Temperature 97.1 F L 97.1 F L Pulse Rate 78 78 Respiratory 17 17 Rate Blood Pressure 138/93 138/93 - Physical General Appearance: Yes: No Apparent Distress HEENTM: Yes: Hearing grossly Normal, Normocephalic, Normal Voice, Nasal Congestion Respiratory: Yes: Chest Non-Tender, Lungs Clear, Normal Breath Sounds, No Respiratory Distress, No Accessory Muscle Use Neck: Yes: No masses,lesions,Nodules, Supple Breast: Yes: Breast Exam Deferred Cardiology: Yes: Regular Rhythm, Regular Rate, S1, S2 Abdominal: Yes: Normal Bowel Sounds, Non Tender, Soft, Surgical Scar Genitourinary: Yes: Within Normal Limits Back: Yes: Normal Inspection Musculoskeletal: Yes: full range of Motion, Back pain Extremities: Yes: Tremors Neurological: Yes: Fully Oriented, Alert, Normal Mood/Affect, Normal Response Integumentary: Yes: Clammy, Other (rash) Lymphatic: Yes: Within Normal Limits - Diagnostic (1) Alcohol dependence with uncomplicated withdrawal Current Visit: Yes Status: Acute (2) Bipolar disorder with depression Current Visit: No Status: Chronic (3) Asthma Current Visit: No Status: Chronic Qualifiers: Asthma severity: mild Asthma persistence: intermittent Asthma complication type: uncomplicated Qualified Code(s): J45.20 - Mild intermittent asthma, uncomplicated (4) GERD (gastroesophageal reflux disease) Current Visit: No Status: Chronic Qualifiers: Esophagitis presence: without esophagitis Qualified Code(s): K21.9 - Gastro -esophageal reflux disease without esophagitis (5) Hypertension Current Visit: Yes Status: Chronic Qualifiers: Hypertension type: essential hypertension Qualified Code(s): I10 - Essential (primary) hypertension Cleared for Admission S - Detox or Rehab [facility] Level of Care: Medically Managed Detox Regimen/Protocol: Librium Claeared for Rehab Admission: No Breathalyzer - Breathalyzer Breathalyzer: 0 Urine Drug Screen - Test Device Lot number: [id number] Expiration date: 09/30/20 - Control Is test valid?: Yes - Results Drug screen NEGATIVE: No Urine drug screen results: THC-Marijuana, ALICE-Cocaine Inpatient Rehab Admission - Rehab Decision to Admit Inpatient rehab admission?: No
[2019-01-15] MEDS ORDERED: ONDANSETRON *ODT* 4 MG TABLET SL PRN (19:11)
[2019-01-15] MEDS ORDERED: P-EPHED 60MG/TRIPROLIDI 2.5MG TABLET PO PRN (19:11)
[2019-01-15] MEDS ORDERED: MAGNESIUM CITRATE 300 ML BOTTLE PO PRN (19:11)
[2019-01-15] MEDS ORDERED: METHOCARBAMOL 500 MG TABLET PO PRN (19:11)
[2019-01-15] MEDS ORDERED: BISMUTH SUBSALICYLATE 524 MG/30 ML UD PO PRN (19:11)
[2019-01-15] MEDS ORDERED: hydrOXYzine PAMOATE 50 MG CAPSULE (FP) PO PRN (19:11)
[2019-01-15] MEDS ORDERED: IBUPROFEN 400 MG TABLET (FP) PO PRN (19:11)
[2019-01-15] MEDS ORDERED: MAGNESIUM HYDROX 2400MG/30ML ORAL SUSPENSION 30 ML CUP PO PRN (19:11)
[2019-01-15] MEDS ORDERED: ACETAMINOPHEN 325 MG TABLET (FP) PO PRN ×2 (19:11)
[2019-01-15] MEDS ORDERED: MENTHOL/PHENOL 1 EACH UD MM PRN (19:11)
[2019-01-15] MEDS ORDERED: MAG HYDROX/AL HYDROX/SIMETH 30 ML UNIT-DOSE CUP PO PRN (19:11)
[2019-01-15] MEDS ORDERED: MINERAL OIL/PETROLAT/WATER TOPICAL CREAM 454 GM JAR TP PRN (19:16)
[2019-01-15] MEDS: chlordiazePOXIDE HCL 25 MG CAPSULE PO SCH (21:36)
[2019-01-15] MEDS: THIAMINE HCL 100 MG TABLET (FP) PO SCH (21:38)
[2019-01-15] MEDS: MELATONIN 5 MG TABLETS PO PRN (22:42)
[2019-01-16] MEDS: chlordiazePOXIDE HCL 25 MG CAPSULE PO SCH ×2 (05:53→12:33)
[2019-01-16] MEDS ORDERED: COLLOIDAL OATMEAL 1 EACH PACKET TP SCH (10:00)
[2019-01-16] MEDS: PRENATAL VITAMINS W/ FOLIC ACID TABLET (FP) PO SCH (10:15)
[2019-01-16] MEDS ORDERED: COLLOIDAL OATMEAL 1 BAR EACH TP PRN (10:18)
[2019-01-16 11:02] LABS: ALBUMIN 3.2 g/dl (3.4-5.0); BILIRUBIN,TOTAL 0.2 mg/dL (0.2-1); BLOOD UREA NITROGEN 16.2 mg/dL (7-18); CALCIUM 8.9 mg/dL (8.5-10.1); CREATININE 1.1 mg/dL (0.55-1.3); POTASSIUM 3.7 mmol/L (3.5-5.1); TOT PROT 6.6 g/dl (6.4-8.2)
[2019-01-16 11:22] LABS: HEMATOCRIT 48.6 % (35.4-49); HEMOGLOBIN 15.5 GM/dL (11.7-16.9); MCH 27.1 pg (25.7-33.7); MEAN CELL VOLUME 84.7 fl (80-96); MEAN PLT VOLUME 10.7 fl (7.5-11.1); RBC 5.74 M/mm3 (4.00-5.60); RDW 16.6 % (11.9-15.9)
[2019-01-16 11:32] LABS: PLATELET COUNT 182 K/MM3 (134-434)
--- NOTE | 2019-01-16 12:39 | PN ---
[facility] CIWA - CIWA Score Nausea/Vomitin-No Nausea/No Vomiting Muscle Tremors: 3 Anxiety: 3 Agitation: 3 Paroxysmal Sweats: 2 Orientation: 0-Oriented Tacttile Disturbances: 0-None Auditory Disturbances: 0-None Visual Disturbances: 0-None Headache: 0-None Present CIWA-Ar Total Score: 11 S Progress Note (SOAP) Subjective: sweats shakes interrupted sleep dry/rash skin to chest and back Objective: 01/16/19 12:37 Vital Signs Temperature 98.1 F 01/16/19 09:22 Pulse Rate 67 01/16/19 09:22 Respiratory Rate 16 01/16/19 09:22 Blood Pressure 130/95 01/16/19 09:22 O2 Sat by Pulse Oximetry (%) Laboratory Tests 01/16/19 01/16/19 01/16/19 07:30 07:30 07:30 WBC 4.0 RBC 5.74 H Hgb 15.5 Hct 48.6 D MCV 84.7 MCH 27.1 MCHC 32.0 RDW 16.6 H Plt Count 182 MPV 10.7 Sodium 142 Potassium 3.7 Chloride 107 Carbon Dioxide 27 Anion Gap 7 L BUN 16.2 Creatinine 1.1 Est GFR (CKD-EPI)AfAm 87.13 Est GFR (CKD-EPI)NonAf 75.17 Random Glucose 118 H Calcium 8.9 Total Bilirubin 0.2 AST 20 ALT 26 Alkaline Phosphatase 66 Total Protein 6.6 Albumin 3.2 L RPR Titer Nonreactive aaox3 ambulating no acute distress Assessment: 01/16/19 12:38 Vital Signs Temperature 98.1 F 01/16/19 09:22 Pulse Rate 67 01/16/19 09:22 Respiratory Rate 16 01/16/19 09:22 Blood Pressure 130/95 01/16/19 09:22 O2 Sat by Pulse Oximetry (%) Laboratory Tests 01/16/19 01/16/19 01/16/19 07:30 07:30 07:30 WBC 4.0 RBC 5.74 H Hgb 15.5 Hct 48.6 D MCV 84.7 MCH 27.1 MCHC 32.0 RDW 16.6 H Plt Count 182 MPV 10.7 Sodium 142 Potassium 3.7 Chloride 107 Carbon Dioxide 27 Anion Gap 7 L BUN 16.2 Creatinine 1.1 Est GFR (CKD-EPI)AfAm 87.13 Est GFR (CKD-EPI)NonAf 75.17 Random Glucose 118 H Calcium 8.9 Total Bilirubin 0.2 AST 20 ALT 26 Alkaline Phosphatase 66 Total Protein 6.6 Albumin 3.2 L RPR Titer Nonreactive aaox3 ambulating no acute distress Plan: continue detox increase fluids eurcerin ointment aveeno soap
[2019-01-16] MEDS: MINERAL OIL/PETROLAT/WATER TOPICAL CREAM 113 GM JAR TP SCH (14:06)
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
[2019-01-16] MEDS: THIAMINE HCL 100 MG TABLET (FP) PO SCH (22:17)
[2019-01-16] MEDS: chlordiazePOXIDE 5 MG CAPSULE PO SCH (22:17)
[2019-01-16] MEDS: MELATONIN 5 MG TABLETS PO PRN (22:17)
[2019-01-17] MEDS: chlordiazePOXIDE 5 MG CAPSULE PO SCH ×2 (05:23→14:02)
[2019-01-17] MEDS: PRENATAL VITAMINS W/ FOLIC ACID TABLET (FP) PO SCH (10:51)
[2019-01-17] MEDS: MINERAL OIL/PETROLAT/WATER TOPICAL CREAM 113 GM JAR TP SCH (10:52)
[2019-01-17] MEDS: chlordiazePOXIDE HCL 10 MG CAPSULE PO PRN ×2 (10:54→19:56)
--- NOTE | 2019-01-17 11:28 | PN ---
S CIWA - CIWA Score Nausea/Vomitin-No Nausea/No Vomiting Muscle Tremors: 3 Anxiety: 2 Agitation: 3 Paroxysmal Sweats: 1-Minimal Palms Moist Orientation: 0-Oriented Tacttile Disturbances: 0-None Auditory Disturbances: 0-None Visual Disturbances: 0-None Headache: 0-None Present CIWA-Ar Total Score: 9 [facility] Progress Note (SOAP) Subjective: skin itch agitation sweats irritable Objective: 01/17/19 11:26 Vital Signs Temperature 97.5 F L 01/17/19 09:17 Pulse Rate 68 01/17/19 09:17 Respiratory Rate 17 01/17/19 09:17 Blood Pressure 141/86 01/17/19 09:17 O2 Sat by Pulse Oximetry (%) Laboratory Tests 01/16/19 01/16/19 01/16/19 07:30 07:30 07:30 WBC 4.0 RBC 5.74 H Hgb 15.5 Hct 48.6 D MCV 84.7 MCH 27.1 MCHC 32.0 RDW 16.6 H Plt Count 182 MPV 10.7 Sodium 142 Potassium 3.7 Chloride 107 Carbon Dioxide 27 Anion Gap 7 L BUN 16.2 Creatinine 1.1 Est GFR (CKD-EPI)AfAm 87.13 Est GFR (CKD-EPI)NonAf 75.17 Random Glucose 118 H Calcium 8.9 Total Bilirubin 0.2 AST 20 ALT 26 Alkaline Phosphatase 66 Total Protein 6.6 Albumin 3.2 L RPR Titer Nonreactive aaox3 ambulating no acute distress Assessment: 01/17/19 11:26 withdrawal sx skin assessed; the rashes appear to be more like plaque psoriasis Plan: continue detox increase fluids lidex cream ordered
[2019-01-17] MEDS: FLUOCINONIDE 0.05% TOP OINT (60 GM TUBE) TP SCH ×3 (15:00→23:00)
[2019-01-17] MEDS ORDERED: chlordiazePOXIDE HCL 10 MG CAPSULE PO PRN (21:00)
[2019-01-17] MEDS ORDERED: cloNIDine HCL 0.1 MG TABLET PO ONE (21:37)
[2019-01-17] MEDS: chlordiazePOXIDE HCL 10 MG CAPSULE PO SCH (22:02)
[2019-01-17] MEDS: THIAMINE HCL 100 MG TABLET (FP) PO SCH (22:02)
[2019-01-17] MEDS: MELATONIN 5 MG TABLETS PO PRN (22:03)
[2019-01-18] MEDS: chlordiazePOXIDE HCL 10 MG CAPSULE PO SCH ×3 (05:42→20:28)
--- NOTE | 2019-01-18 09:43 | PN ---
S CIWA - CIWA Score Nausea/Vomitin Muscle Tremors: 1-None Visible, but [place] Anxiety: 1-Mildly Anxious Agitation: 2 Paroxysmal Sweats: No Perspiration Orientation: 0-Oriented Tacttile Disturbances: 1-Very Mild Itch/Numbness Auditory Disturbances: 1-Very Mild Visual Disturbances: 0-None Headache: 1-Very Mild CIWA-Ar Total Score: 9 BHS Progress Note (SOAP) Subjective: alert,irritable,anxious,interrupted sleep Objective: 01/18/19 09:42 Vital Signs Temperature 97.7 F 01/18/19 09:19 Pulse Rate 109 H 01/18/19 09:19 Respiratory Rate 18 01/18/19 09:19 Blood Pressure 125/98 01/18/19 09:19 O2 Sat by Pulse Oximetry (%) Assessment: 01/18/19 09:43 withdrawal symptom Plan: continue detox,discharge in am
[2019-01-18] MEDS: MINERAL OIL/PETROLAT/WATER TOPICAL CREAM 113 GM JAR TP SCH (10:15)
[2019-01-18] MEDS: FLUOCINONIDE 0.05% TOP OINT (60 GM TUBE) TP SCH ×4 (10:38→22:13)
[2019-01-18] MEDS: PRENATAL VITAMINS W/ FOLIC ACID TABLET (FP) PO SCH (10:38)
[2019-01-18] MEDS: THIAMINE HCL 100 MG TABLET (FP) PO SCH (22:13)
[2019-01-18] MEDS: MELATONIN 5 MG TABLETS PO PRN (22:13)
[2019-01-19 08:06] VITALS: TEMP 97.2
--- NOTE | 2019-01-19 09:04 | DS ---
[facility] Detox Discharge Summary Admission Date: 01/15/19 Discharge Date: 01/19/19 - History Present History: Alcohol Dependence, Cannabis Dependence, Cocaine Dependence - Physical Exam Results Vital Signs: Vital Signs Temperature 97.2 F L 01/19/19 08:05 Pulse Rate 62 01/19/19 08:05 Respiratory Rate 18 01/19/19 08:05 Blood Pressure 139/91 01/19/19 08:05 O2 Sat by Pulse Oximetry (%) - Treatment Hospital Course: Detox Protocol Followed, Detoxed Safely, Responded well, Discharged Condition Good, Rehab Referral Accepted - Diagnosis (1) Alcohol dependence with uncomplicated withdrawal Current Visit: Yes Status: Chronic (2) Cannabis dependence Current Visit: Yes Status: Chronic (3) Cocaine dependence Current Visit: Yes Status: Chronic Qualifiers: Substance use status: uncomplicated Qualified Code(s): F14.20 - Cocaine dependence, uncomplicated (4) Substance induced mood disorder Current Visit: Yes Status: Acute (5) Substance-induced sleep disorder Current Visit: Yes Status: Acute (6) Bipolar disorder Current Visit: Yes Status: Chronic (7) Hypertension Current Visit: Yes Status: Chronic Qualifiers: Hypertension type: essential hypertension Qualified Code(s): I10 - Essential (primary) hypertension (8) Nicotine dependence Current Visit: Yes Status: Chronic Qualifiers: Nicotine product type: cigarettes Substance use status: uncomplicated Qualified Code(s): F17.210 - Nicotine dependence, cigarettes, uncomplicated (9) Asthma Current Visit: Yes Status: Chronic Qualifiers: Asthma severity: mild Asthma persistence: intermittent Asthma complication type: uncomplicated Qualified Code(s): J45.20 - Mild intermittent asthma, uncomplicated (10) Bipolar disorder with depression Current Visit: No Status: Chronic (11) GERD (gastroesophageal reflux disease) Current Visit: No Status: Chronic Qualifiers: Esophagitis presence: without esophagitis Qualified Code(s): K21.9 - Gastro -esophageal reflux disease without esophagitis (12) History of gastric ulcer Current Visit: No Status: Resolved - AMA Did Patient Leave Against Medical Advice: No ([facility])
[2019-01-19] MEDS: MINERAL OIL/PETROLAT/WATER TOPICAL CREAM 113 GM JAR TP SCH (10:32)
[2019-01-19] MEDS: PRENATAL VITAMINS W/ FOLIC ACID TABLET (FP) PO SCH (10:32)
[2019-01-19] MEDS: FLUOCINONIDE 0.05% TOP OINT (60 GM TUBE) TP SCH (10:33)
[2019-01-19 11:22] VITALS: BP 129/86; PULSE 61
== END 2019-01-19 14:00 | disposition home or self-care (01) | DRG 774 ==
LOC: YASAS 15:06 → Y6N 19:55
PROVIDERS: ADMIT Surgery; ATTEND Surgery
PROC: HZ2ZZZZ Detoxification Services for Substance Abuse Treatment (ICD-10-PCS; principal; 2019-01-15)
DX: F10.230 Alcohol dependence with withdrawal, uncomplicated (principal); F14.20 Cocaine dependence, uncomplicated; F12.20 Cannabis dependence, uncomplicated; F17.210 Nicotine dependence, cigarettes, uncomplicated; F19.24 Other psychoactive substance dependence with psychoactive substance-induced mood disorder; F19.282 Other psychoactive substance dependence with psychoactive substance-induced sleep disorder; F31.9 Bipolar disorder, unspecified; I10 Essential (primary) hypertension; J45.20 Mild intermittent asthma, uncomplicated; K21.9 Gastro-esophageal reflux disease without esophagitis; L40.0 Psoriasis vulgaris; Z87.11 Personal history of peptic ulcer disease; Z91.5 Personal history of self-harm
CPT/HCPCS: 36415; 80053; 85027; 86593; J0735

== ENCOUNTER 2019-03-17 11:44 | Inpatient (IN) | payer OTHER ==
[2019-03-17 12:28] VITALS: BMI 22.9
--- NOTE | 2019-03-17 14:08 | HP ---
CIWA Score Nausea/Vomitin-No Nausea/No Vomiting Muscle Tremors: 3 Anxiety: 2 Agitation: 2 Paroxysmal Sweats: No Perspiration Orientation: 1-Uncertain about Date Tacttile Disturbances: 0-None Auditory Disturbances: 1-Very Mild Visual Disturbances: 2-Mild Sensitivity Headache: 2-Mild CIWA-Ar Total Score: 13 - Admission Criteria OASAS Guidelines: Admission for Medically Managed Detox: Requires at least one of the followin. CIWA greater than 12 2. Seizures within the past 24 hours 3. Delirium tremens within the past 24 hours 4. Hallucinations within the past 24 hours 5. Acute intervention needed for co occurring medical disorder 6. Acute intervention needed for co occurring psychiatric disorder 7. Severe withdrawal that cannot be handled at a lower level of care (continued vomiting, continued diarrhea, abnormal vital signs) requiring intravenous medication and/or fluids 8. Patient presents the following: CIWA greater than 12 Admission Criteria Met: Admission criteria met Admission ROS [facility] - HPI Chief Complaint: i asked to come, i dont want to use anymore Allergies/Adverse Reactions: Allergies Allergy/AdvReac Type Severity Reaction Status Date / Time No Known Allergies Allergy Verified 03/17/19 12:19 History of Present Illness: substance use use began age 7 with marijuana, etoh 12, cocaine age 21 has had periods of abstinence for 1 month max, majority of time is using and feels all substances are equally problematic is in outpt voluntarily dx bipolar, paranoid schizophrenia anxiety since 1998 diagnosed during incarceration multiple drug related incarcerations 10 year bid no current legals - Ebola screening Have you traveled outside of the country in the last 21 days: No Have you had contact with anyone from an Ebola affected area: No Do you have a fever: No - Review of Systems Constitutional: Loss of Appetite EENT: reports: No Symptoms Reported Respiratory: reports: No Symptoms reported Cardiac: reports: No Symptoms Reported GI: reports: No Symptoms Reported : reports: No Symptoms Reported Musculoskeletal: reports: No Symptoms Reported Integumentary: reports: No Symptoms Reported Neuro: reports: Tremors Endocrine: reports: No Symptoms Reported Hematology: reports: No Symptoms Reported Psychiatric: reports: Anxious Patient History - Patient Medical History Hx Anemia: No Hx Asthma: Yes Hx Chronic Obstructive Pulmonary Disease (COPD): No Hx Cancer: No Hx Congestive Heart Failure: No Hx Hypertension: No Hx Hypercholesterolemia: No Hx Pacemaker: No Hx Seizures: No Hx Diabetes: No Hx Gastrointestinal Disorders: Yes (hx perforated ulcer september 2018 (surgery)) Hx Liver Disease: No Hx Genitourinary Disorders: No Hx Sexually Transmitted Disorders: No Hx Renal Disease (ESRD): No Hx Thyroid Disease: No Hx Human Immunodeficiency Virus (HIV): No Hx Hepatitis C: No Hx Depression: Yes (hospitalized [facility] 2009) Hx Suicide Attempt: Yes (2009 (pills)) Hx Bipolar Disorder: Yes Hx Schizophrenia: Yes - Patient Surgical History Past Surgical History: Yes Hx Abdominal Surgery: Yes (stomach ulcer repair 09/2018; abdominal hernia 2009) Anesthesia Reaction: No - PPD History Date: 10/18/18 Results: negative - Smoking Cessation Smoking history: Current every day smoker Have you smoked in the past 12 months: Yes Aproximately how many cigarettes per day: 2 Hx Chewing Tobacco Use: No Initiated information on smoking cessation: Yes 'Breaking Loose' booklet given: 03/17/19 - Substances abused Marijuana/Hashish Substance route: Smoking Frequency: Daily Amount used: $10 Age of first use: 7 Date of last use: 03/17/19 Alcohol Substance route: Oral Frequency: Daily Amount used: 2 (12) oz, 1 pint of vodka Age of first use: 12 Date of last use: 03/17/19 Cocaine Substance route: Inhalation Frequency: 1-3 times last 30 days Amount used: 1 gram Age of first use: 21 Date of last use: 03/15/19 Crack Substance route: Smoking Frequency: 3-6 times per week Amount used: $50 Age of first use: 21 Date of last use: 01/15/19 Family Disease History - Family Disease History Family Disease History: Diabetes: Brother (two - living, ), [place]: Mother ( ), Other: Father (, no contact), Mother, Brother, Sister (one - healthy), Daughter (one age 13 - healthy) Admission Physical Exam S - Vital Signs Vital Signs: Vital Signs - 24 hr 03/17/19 03/17/19 12:18 13:01 Temperature 97.1 F L 97.1 F L Pulse Rate 69 69 Respiratory 16 16 Rate Blood Pressure 125/88 125/88 - Physical General Appearance: Yes: Disheveled, Irritable, Anxious HEENTM: Yes: EOMI, Normocephalic Respiratory: Yes: Chest Non-Tender, Lungs Clear, Normal Breath Sounds Neck: Yes: Within Normal Limits Breast: Yes: Breast Exam Deferred Cardiology: Yes: Within Normal Limits, Regular Rhythm, Regular Rate, S1, S2 Abdominal: Yes: Within Normal Limits, Normal Bowel Sounds, Non Tender Genitourinary: Yes: Within Normal Limits Back: Yes: Within Normal Limits Musculoskeletal: Yes: Within Normal Limits, full range of Motion, Gait Steady Extremities: Yes: Within Normal Limits Neurological: Yes: 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 II-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 NML intact, Alert, Motor Strength 5/5, Normal Response Integumentary: Yes: Normal Color, Dry, Warm - Diagnostic (1) Alcohol dependence with uncomplicated withdrawal Current Visit: Yes Status: Chronic (2) Asthma Current Visit: No Status: Chronic Qualifiers: Asthma severity: mild Asthma persistence: intermittent Asthma complication type: uncomplicated Qualified Code(s): J45.20 - Mild intermittent asthma, uncomplicated (3) Bipolar disorder Current Visit: Yes Status: Chronic (4) Cannabis dependence Current Visit: Yes Status: Chronic (5) Cocaine dependence Current Visit: Yes Status: Chronic Qualifiers: Substance use status: uncomplicated Qualified Code(s): F14.20 - Cocaine dependence, uncomplicated (6) Nicotine dependence Current Visit: Yes Status: Chronic Qualifiers: Nicotine product type: cigarettes Substance use status: uncomplicated Qualified Code(s): F17.210 - Nicotine dependence, cigarettes, uncomplicated Breathalyzer - Breathalyzer Breathalyzer: 0.001 Urine Drug Screen - Test Device Lot number: [id number] Expiration date: 11/29/19 - Control Is test valid?: Yes - Results Drug screen NEGATIVE: No Urine drug screen results: THC-Marijuana, ALICE-Cocaine Inpatient Rehab Admission - Rehab Decision to Admit Inpatient rehab admission?: No
[2019-03-17] MEDS ORDERED: MENTHOL/PHENOL 1 EACH UD MM PRN (14:16)
[2019-03-17] MEDS ORDERED: BISMUTH SUBSALICYLATE 262 MG/15 ML BTL PO PRN (14:16)
[2019-03-17] MEDS ORDERED: MAGNESIUM HYDROX 2400MG/30ML ORAL SUSPENSION 30 ML CUP PO PRN (14:16)
[2019-03-17] MEDS ORDERED: ACETAMINOPHEN 325 MG TABLET (FP) PO PRN ×2 (14:16)
[2019-03-17] MEDS ORDERED: IBUPROFEN 400 MG TABLET (FP) PO PRN (14:16)
[2019-03-17] MEDS ORDERED: MELATONIN 5 MG TABLETS PO PRN (14:16)
[2019-03-17] MEDS ORDERED: MAGNESIUM CITRATE 300 ML BOTTLE PO PRN (14:16)
[2019-03-17] MEDS ORDERED: METHOCARBAMOL 500 MG TABLET PO PRN (14:16)
[2019-03-17] MEDS ORDERED: chlordiazePOXIDE HCL 10 MG CAPSULE PO PRN (14:16)
[2019-03-17] MEDS ORDERED: MAG HYDROX/AL HYDROX/SIMETH 30 ML UNIT-DOSE CUP PO PRN (14:16)
[2019-03-17] MEDS ORDERED: hydrOXYzine HCL 25 MG TABLET (FP) PO PRN (14:16)
[2019-03-17] MEDS: chlordiazePOXIDE HCL 10 MG CAPSULE PO ONE (15:16)
[2019-03-17 17:15] LABS: ALBUMIN 3.6 g/dl (3.4-5.0); BILIRUBIN,TOTAL 0.4 mg/dL (0.2-1); BLOOD UREA NITROGEN 15.8 mg/dL (7-18); CREATININE 1.2 mg/dL (0.55-1.3); POTASSIUM 4.2 mmol/L (3.5-5.1); TOT PROT 7.2 g/dl (6.4-8.2)
[2019-03-17 17:26] LABS: HEMATOCRIT 45.8 % (35.4-49); HEMOGLOBIN 14.9 GM/dL (11.7-16.9); MCHC 32.5 g/dl (32.0-35.9); MEAN CELL VOLUME 86.3 fl (80-96); MEAN PLT VOLUME 11.2 fl (7.5-11.1); PLATELET COUNT 170 K/MM3 (134-434); RBC 5.31 M/mm3 (4.00-5.60); RDW 15.9 % (11.9-15.9); WHITE BLOOD COUNT 5.1 K/mm3 (4.0-10.0)
[2019-03-17] MEDS: THIAMINE HCL 100 MG TABLET (FP) PO SCH (22:39)
[2019-03-17] MEDS: chlordiazePOXIDE HCL 25 MG CAPSULE PO SCH (22:39)
[2019-03-18] MEDS: chlordiazePOXIDE HCL 25 MG CAPSULE PO SCH ×3 (05:48→21:59)
[2019-03-18] MEDS: PRENATAL VITAMINS W/ FOLIC ACID TABLET (FP) PO SCH (10:04)
--- NOTE | 2019-03-18 14:56 | CONSULT ---
[facility] Psychiatric Consult - Data Date of interview: 03/18/19 Admission source: [facility] Substance Abuse History: Smoking history: Current every day smoker. Have you smoked in the past 12 months: Yes. Aproximately how many cigarettes per day: 2. Hx Chewing Tobacco Use: No. Initiated information on smoking cessation: Yes. 'Breaking Loose' booklet given: 03/17/19. - Substances abused. Marijuana/Hashish. Substance route: Smoking. Frequency: Daily. Amount used: $ 10. Age of first use: 7. Date of last use: 03/17/19. Alcohol. Substance route: Oral. Frequency: Daily. Amount used: 2 (12) oz, 1 pint of vodka. Age of first use: 12. Date of last use: 03/17/19. Cocaine. Substance route: Inhalation. Frequency: 1-3 times last 30 days. Amount used: 1 gram. Age of first use: 21. Date of last use: 03/15/19. Crack. Substance route: Smoking. Frequency: 3-6 times per week. Amount used: $50. Age of first use: 21. Date of last use: 01/15/19 Medical History: Remarkable for bronchial asthma, history of surgery for perforated ulcer and abdominal herniorraphy. Psychiatric History: Patient endorses the diagnosis of Bipolar Disorder. Made in 2003. First psychiatric admission took place, in 2009, at [facility] (suicide attempt via overdose with pills). A second hospitalization followed, in 2011, at [facility]. Mr Najera gets his outpatient psychiatric services at [facility] in [facility]. Patient is seroquel 50 mg/hs + remeron 30 mg/hs (confirmed by call to [employer] at [phone] : refills issued on 03/09/19). Physical/Sexual Abuse/Trauma History: Patient denies history of abuse. Additional Comment: Urine drug screen results: THC-Marijuana, ALICE-Cocaine. Noted. Mental Status Exam - Mental Status Exam Alert and Oriented to: Time, Place, Person Cognitive Function: Good Patient Appearance: Well Groomed Mood: Nervous, Withdrawn, Hopeful Affect: Appropriate, Normal Range Patient Behavior: Fatigued, Cooperative Speech Pattern: Clear, Appropriate Voice Loudness: Normal Thought Process: Intact, Goal Oriented Thought Disorder: Not Present Hallucinations: Denies Suicidal Ideation: Denies Homicidal Ideation: Denies Insight/Judgement: Poor Sleep: Poorly, Difficulty falling asleep Appetite: Good Muscle strength/Tone: Normal Gait/Station: Normal Psychiatric Findings - Problem List ([place] 1, 2,3) (1) Alcohol dependence with uncomplicated withdrawal Current Visit: Yes Status: Acute (2) Cocaine dependence Current Visit: Yes Status: Chronic Qualifiers: Substance use status: uncomplicated Qualified Code(s): F14.20 - Cocaine dependence, uncomplicated (3) Cannabis dependence Current Visit: Yes Status: Chronic (4) Nicotine dependence Current Visit: Yes Status: Chronic Qualifiers: Nicotine product type: cigarettes Substance use status: uncomplicated Qualified Code(s): F17.210 - Nicotine dependence, cigarettes, uncomplicated (5) Bipolar disorder Current Visit: Yes Status: Chronic Comment: As per self-report. (6) Substance induced mood disorder Current Visit: Yes Status: Chronic (7) Insomnia Current Visit: Yes Status: Chronic Comment: Psychoeducation. Sleep hygiene. Detoxification. Support. AA meetings. Medications : seroquel 50 mg po hs + remeron 15 mg po hs. Side effects/benefits of both drugs are discussed with patient. Mr Najera is in agreement with this plan of care. Observation.
--- NOTE | 2019-03-18 16:55 | PN ---
S CIWA - CIWA Score Nausea/Vomitin-No Nausea/No Vomiting Muscle Tremors: 3 Anxiety: 4-Mod. Anxious/Guarded Agitation: 3 Paroxysmal Sweats: No Perspiration Orientation: 0-Oriented Tacttile Disturbances: 2-Mild Itch/Numbness/Burn Auditory Disturbances: 0-None Visual Disturbances: 2-Mild Sensitivity Headache: 0-None Present CIWA-Ar Total Score: 14 BHS Progress Note (SOAP) Subjective: Interrupted Sleep, Anxious, Tremors. Objective: PATIENT A & O X 3, OBSERVED AMBULATING ON UNIT UNASSISTED. IN NO ACUTE DISTRESS. 03/18/19 16:53 Vital Signs Temperature 97 F L 03/18/19 13:29 Pulse Rate 58 L 03/18/19 13:29 Respiratory Rate 18 03/18/19 13:29 Blood Pressure 132/95 03/18/19 13:29 O2 Sat by Pulse Oximetry (%) Laboratory Tests 03/17/19 03/17/19 03/17/19 14:35 14:35 14:35 WBC 5.1 RBC 5.31 Hgb 14.9 Hct 45.8 MCV 86.3 MCH 28.0 MCHC 32.5 RDW 15.9 Plt Count 170 MPV 11.2 H Sodium 142 Potassium 4.2 Chloride 108 H Carbon Dioxide 27 Anion Gap 7 L BUN 15.8 Creatinine 1.2 Est GFR (CKD-EPI)AfAm 78.43 Est GFR (CKD-EPI)NonAf 67.67 Random Glucose 111 H Calcium 9.0 Total Bilirubin 0.4 AST 21 ALT 24 Alkaline Phosphatase 61 Total Protein 7.2 Albumin 3.6 RPR Titer Nonreactive HIV 1&2 Antibody Screen HIV P24 Antigen 03/17/19 14:35 WBC RBC Hgb Hct MCV MCH MCHC RDW Plt Count MPV Sodium Potassium Chloride Carbon Dioxide Anion Gap BUN Creatinine Est GFR (CKD-EPI)AfAm Est GFR (CKD-EPI)NonAf Random Glucose Calcium Total Bilirubin AST ALT Alkaline Phosphatase Total Protein Albumin RPR Titer HIV 1&2 Antibody Screen Cancelled HIV P24 Antigen Cancelled LABS NOTED. RESULT OF ADMISSION HIV AB TEST PENDING. 03/18/19 16:54 Assessment: 03/18/19 16:54 WITHDRAWAL SYMPTOMS. Plan: CONTINUE DETOX.
[2019-03-18] MEDS: MIRTAZAPINE 15 MG TABLET (FP) PO SCH (21:59)
[2019-03-18] MEDS: THIAMINE HCL 100 MG TABLET (FP) PO SCH (21:59)
[2019-03-18] MEDS ORDERED: QUEtiapine FUMARATE 50 MG TABLET PO SCH (22:00)
[2019-03-19] MEDS: chlordiazePOXIDE 5 MG CAPSULE PO SCH ×3 (05:28→22:24)
[2019-03-19] MEDS: PRENATAL VITAMINS W/ FOLIC ACID TABLET (FP) PO SCH (11:00)
--- NOTE | 2019-03-19 15:46 | PN ---
Psychiatric Progress Note Vital Signs: Vital Signs Period Temp Pulse Resp BP Sys/Hale Pulse Ox Last 24 Hr 96.7 F-97.9 F 55-66 16-18 105-137/70-101 Date of Session: 03/19/19 Chief Complaint:: " I want my medications to be lowered. I feel drowzy." HPI: Patient is on seroquel + remeron. In addition to his detoxification regimen. Feels weak and sedated. 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 ROS: Unremarkable except for complaints of mild sedation. Patient remains ambulatory with steady gait. Alert and fully oriented. Current Medications: Active Medications Generic Name Dose Route Start Last Admin Trade Name Freq PRN Reason Stop Dose Admin Acetaminophen 650 mg 03/17/19 14:16 Tylenol - PO Q6H PRN PAIN LEVEL 4 - 6 Acetaminophen 650 mg 03/17/19 14:16 Tylenol - PO Q6H PRN FEVER Al Hydroxide/Mg Hydroxide 30 ml 03/17/19 14:16 Mylanta Oral Suspension - PO Q6H PRN DYSPEPSIA Bismuth Subsalicylate 30 ml 03/17/19 14:16 Pepto-Bismol Liquid - PO Q1H PRN DIARRHEA Chlordiazepoxide HCl 10 mg 03/20/19 00:00 Librium - PO 03/20/19 23:59 Q12H PRN Signs/symptoms of Withdrawal Chlordiazepoxide HCl 10 mg 03/17/19 14:16 Librium - PO 03/19/19 23:59 Q8H PRN Signs/symptoms of Withdrawal Chlordiazepoxide HCl 15 mg 03/19/19 05:00 03/19/19 13:43 Librium - PO 03/19/19 21:01 15 mg Q8H MIRIAN Administration Chlordiazepoxide HCl 10 mg 03/20/19 05:00 Librium - PO 03/20/19 21:01 Q8H MIRIAN Chlordiazepoxide HCl 10 mg 03/21/19 05:00 03/17/19 15:16 Librium - PO 03/21/19 05:01 10 mg ONCE ONE Administration Eucalyptus/Menthol/Phenol/Sorbitol 1 each 03/17/19 14:16 Cepastat Lozenge - MM 03/23/19 14:17 Q4H PRN SORE THROAT Hydroxyzine HCl 25 mg 03/17/19 14:16 Atarax - PO 03/23/19 14:17 Q6H PRN For Anxiety Ibuprofen 400 mg 03/17/19 14:16 Motrin - PO Q6H PRN PAIN LEVEL 1 - 3 Magnesium Citrate 300 ml 03/17/19 14:16 Citroma - PO Q48H PRN CONSTIPATION Magnesium Hydroxide 30 ml 03/17/19 14:16 Milk Of Magnesia - PO PRN PRN CONSTIPATION Melatonin 5 mg 03/17/19 14:16 03/17/19 22:40 Melatonin PO 5 mg HS PRN Administration INSOMNIA Methocarbamol 500 mg 03/17/19 14:16 Robaxin - PO 03/23/19 14:17 Q6H PRN MUSCLE SPASMS Mirtazapine 15 mg 03/18/19 22:00 03/18/19 21:59 Remeron - PO 15 mg HS MIRIAN Administration Multivit/Folic Acid/Iron 1 tab 03/18/19 10:00 03/19/19 11:00 Vitamins (Sjr) - PO Not Given DAILY MIRIAN Thiamine HCl 100 mg 03/17/19 22:00 03/18/19 21:59 Vitamin B1 - PO 100 mg HS MIRIAN Administration Medication(s) Change(s): Seroquel is discontinued. Patient is in agreement with this plan of care. Current Side Effect: Yes (mild sedation.) Lab tests ordered: No Lab tests reviewed: Yes Provider note:: Chart reviewed. Met with the patient. Mr Najera complains of feeling somewhat sedated. Appears slow and anxious. Vitals are within range. Patient is observed ambulating in hallways. Reassurance given. Treatment plan re -discussed with the patient. Benign hospital course. Stable mental status. Total face to face time:: 25 Mental Status Exam - Mental Status Exam Alert and Oriented to: Time, Place, Person Cognitive Function: Grossly Intact Patient Appearance: Well Groomed Mood: Anxious, Apprehensive Affect: Mood Congruent, Constricted Patient Behavior: Fatigued, Appropriate, Cooperative Speech Pattern: Clear Voice Loudness: Normal Thought Process: Goal Oriented Thought Disorder: Not Present Hallucinations: Denies Suicidal Ideation: Denies Homicidal Ideation: Denies Insight/Judgement: Fair Sleep: Well Appetite: Good Muscle strength/Tone: Normal Gait/Station: Other (slow gait) Psychiatric Treatment Plan - Problem List (1) Alcohol dependence with uncomplicated withdrawal Current Visit: Yes Comment: . (2) Cocaine dependence Current Visit: Yes Qualifiers: Substance use status: uncomplicated Qualified Code(s): F14.20 - Cocaine dependence, uncomplicated Comment: . (3) Cannabis dependence Current Visit: Yes Comment: . (4) Nicotine dependence Current Visit: Yes Qualifiers: Nicotine product type: cigarettes Substance use status: uncomplicated Qualified Code(s): F17.210 - Nicotine dependence, cigarettes, uncomplicated Comment: . (5) Bipolar disorder Current Visit: Yes Comment: .As per self-report. (6) Substance induced mood disorder Current Visit: Yes Comment: . (7) Insomnia Current Visit: Yes
--- NOTE | 2019-03-19 15:57 | PN ---
S CIWA - CIWA Score Nausea/Vomitin-No Nausea/No Vomiting Muscle Tremors: 2 Anxiety: 3 Agitation: 1-Slight > Activity Paroxysmal Sweats: No Perspiration Orientation: 0-Oriented Tacttile Disturbances: 1-Very Mild Itch/Numbness Auditory Disturbances: 0-None Visual Disturbances: 2-Mild Sensitivity Headache: 0-None Present CIWA-Ar Total Score: 9 BHS Progress Note (SOAP) Subjective: Tremors, Anxious, Sweating, Fatigue. Objective: PATIENT A & O X 3, OBSERVED AMBULATING ON UNIT UNASSISTED. IN NO ACUTE DISTRESS. 03/19/19 15:56 Vital Signs Temperature 97.9 F 03/19/19 09:46 Pulse Rate 57 L 03/19/19 09:46 Respiratory Rate 18 03/19/19 09:46 Blood Pressure 134/101 H 03/19/19 09:46 O2 Sat by Pulse Oximetry (%) Laboratory Tests 03/17/19 03/17/19 03/17/19 14:35 14:35 14:35 WBC 5.1 RBC 5.31 Hgb 14.9 Hct 45.8 MCV 86.3 MCH 28.0 MCHC 32.5 RDW 15.9 Plt Count 170 MPV 11.2 H Sodium 142 Potassium 4.2 Chloride 108 H Carbon Dioxide 27 Anion Gap 7 L BUN 15.8 Creatinine 1.2 Est GFR (CKD-EPI)AfAm 78.43 Est GFR (CKD-EPI)NonAf 67.67 Random Glucose 111 H Calcium 9.0 Total Bilirubin 0.4 AST 21 ALT 24 Alkaline Phosphatase 61 Total Protein 7.2 Albumin 3.6 RPR Titer Nonreactive HIV 1&2 Ag/Ab, 4th Gen HIV 1&2 Antibody Screen HIV P24 Antigen 03/17/19 03/18/19 14:35 10:00 WBC RBC Hgb Hct MCV MCH MCHC RDW Plt Count MPV Sodium Potassium Chloride Carbon Dioxide Anion Gap BUN Creatinine Est GFR (CKD-EPI)AfAm Est GFR (CKD-EPI)NonAf Random Glucose Calcium Total Bilirubin AST ALT Alkaline Phosphatase Total Protein Albumin RPR Titer HIV 1&2 Ag/Ab, 4th Gen Non reactive HIV 1&2 Antibody Screen Cancelled HIV P24 Antigen Cancelled LABS NOTED. Assessment: 03/19/19 15:56 WITHDRAWAL SYMPTOMS. Plan: CONTINUE DETOX.
[2019-03-19] MEDS: MIRTAZAPINE 15 MG TABLET (FP) PO SCH (22:24)
[2019-03-19] MEDS: THIAMINE HCL 100 MG TABLET (FP) PO SCH (22:24)
[2019-03-20] MEDS ORDERED: chlordiazePOXIDE HCL 10 MG CAPSULE PO PRN
[2019-03-20] MEDS: chlordiazePOXIDE HCL 10 MG CAPSULE PO SCH ×3 (05:32→22:16)
[2019-03-20] MEDS: PRENATAL VITAMINS W/ FOLIC ACID TABLET (FP) PO SCH (10:15)
--- NOTE | 2019-03-20 14:14 | PN ---
S CIWA - CIWA Score Nausea/Vomitin-No Nausea/No Vomiting Muscle Tremors: 2 Anxiety: 1-Mildly Anxious Agitation: 2 Paroxysmal Sweats: No Perspiration Orientation: 0-Oriented Tacttile Disturbances: 0-None Auditory Disturbances: 0-None Visual Disturbances: 0-None Headache: 0-None Present CIWA-Ar Total Score: 5 S Progress Note (SOAP) Subjective: 53 years old male admitted on 03/17/19 for acute alcohol withdrawal sx management doing well with librium detox regimen less tremor discuss aftercare with staff prefers [facility] seen by psychiatrist araceli canales Objective: 03/20/19 14:17 Vital Signs Temperature 96.5 F L 03/20/19 09:41 Pulse Rate 62 03/20/19 09:41 Respiratory Rate 18 03/20/19 09:41 Blood Pressure 114/77 03/20/19 09:41 O2 Sat by Pulse Oximetry (%) Laboratory Last Values WBC 5.1 K/mm3 (4.0-10.0) 03/17/19 14:35 RBC 5.31 M/mm3 (4.00-5.60) 03/17/19 14:35 Hgb 14.9 GM/dL (11.7-16.9) 03/17/19 14:35 Hct 45.8 % (35.4-49) 03/17/19 14:35 MCV 86.3 fl (80-96) 03/17/19 14:35 MCH 28.0 pg (25.7-33.7) 03/17/19 14:35 MCHC 32.5 g/dl (32.0-35.9) 03/17/19 14:35 RDW 15.9 % (11.9-15.9) 03/17/19 14:35 Plt Count 170 K/MM3 (134-434) 03/17/19 14:35 MPV 11.2 fl (7.5-11.1) H 03/17/19 14:35 Sodium 142 mmol/L (136-145) 03/17/19 14:35 Potassium 4.2 mmol/L (3.5-5.1) 03/17/19 14:35 Chloride 108 mmol/L (98-107) H 03/17/19 14:35 Carbon Dioxide 27 mmol/L (21-32) 03/17/19 14:35 Anion Gap 7 MMOL/L (8-16) L 03/17/19 14:35 BUN 15.8 mg/dL (7-18) 03/17/19 14:35 Creatinine 1.2 mg/dL (0.55-1.3) 03/17/19 14:35 Est GFR (CKD-EPI)AfAm 78.43 03/17/19 14:35 Est GFR (CKD-EPI)NonAf 67.67 03/17/19 14:35 Random Glucose 111 mg/dL (74-106) H 03/17/19 14:35 Calcium 9.0 mg/dL (8.5-10.1) 03/17/19 14:35 Total Bilirubin 0.4 mg/dL (0.2-1) 03/17/19 14:35 AST 21 U/L (15-37) 03/17/19 14:35 ALT 24 U/L (13-61) 03/17/19 14:35 Alkaline Phosphatase 61 U/L (45-117) 03/17/19 14:35 Total Protein 7.2 g/dl (6.4-8.2) 03/17/19 14:35 Albumin 3.6 g/dl (3.4-5.0) 03/17/19 14:35 RPR Titer Nonreactive (NONREACTIVE) 03/17/19 14:35 HIV 1&2 Ag/Ab, 4th Gen Non reactive (Non Reactive) 03/18/19 10:00 HIV 1&2 Antibody Screen Cancelled 03/17/19 14:35 HIV P24 Antigen Cancelled 03/17/19 14:35 lab noted Assessment: 03/20/19 14:18 alcohol withdrawal sx alert oriented x 3 Plan: continue librium detox regimen
[2019-03-20] MEDS: MIRTAZAPINE 15 MG TABLET (FP) PO SCH (22:15)
[2019-03-20] MEDS: THIAMINE HCL 100 MG TABLET (FP) PO SCH (22:15)
[2019-03-21] MEDS: chlordiazePOXIDE HCL 10 MG CAPSULE PO ONE (06:04)
[2019-03-21 09:10] VITALS: BP 152/94; PULSE 75; TEMP 97.8
[2019-03-21] MEDS: PRENATAL VITAMINS W/ FOLIC ACID TABLET (FP) PO SCH (10:10)
--- NOTE | 2019-03-21 12:27 | DS ---
[facility] Detox Discharge Summary Admission Date: 03/17/19 Discharge Date: 03/21/19 - History Present History: Alcohol Dependence Additional Comments: 53 years old male admitted on 03/17/19 for acute alcohol withdrawal sx management doing well with librium detox regimen no complication through out the detox stay seen by psychiatrist begin seroquel and zoloft tolerate well denies dizziness no shortness of breathe - Physical Exam Results Vital Signs: Vital Signs Temperature 97.8 F 03/21/19 09:09 Pulse Rate 75 03/21/19 09:09 Respiratory Rate 18 03/21/19 09:09 Blood Pressure 152/94 03/21/19 09:09 O2 Sat by Pulse Oximetry (%) Pertinent Admission Physical Exam Findings: alcohol withdrawal sx Laboratory Last Values WBC 5.1 K/mm3 (4.0-10.0) 03/17/19 14:35 RBC 5.31 M/mm3 (4.00-5.60) 03/17/19 14:35 Hgb 14.9 GM/dL (11.7-16.9) 03/17/19 14:35 Hct 45.8 % (35.4-49) 03/17/19 14:35 MCV 86.3 fl (80-96) 03/17/19 14:35 MCH 28.0 pg (25.7-33.7) 03/17/19 14:35 MCHC 32.5 g/dl (32.0-35.9) 03/17/19 14:35 RDW 15.9 % (11.9-15.9) 03/17/19 14:35 Plt Count 170 K/MM3 (134-434) 03/17/19 14:35 MPV 11.2 fl (7.5-11.1) H 03/17/19 14:35 Sodium 142 mmol/L (136-145) 03/17/19 14:35 Potassium 4.2 mmol/L (3.5-5.1) 03/17/19 14:35 Chloride 108 mmol/L (98-107) H 03/17/19 14:35 Carbon Dioxide 27 mmol/L (21-32) 03/17/19 14:35 Anion Gap 7 MMOL/L (8-16) L 03/17/19 14:35 BUN 15.8 mg/dL (7-18) 03/17/19 14:35 Creatinine 1.2 mg/dL (0.55-1.3) 03/17/19 14:35 Est GFR (CKD-EPI)AfAm 78.43 03/17/19 14:35 Est GFR (CKD-EPI)NonAf 67.67 03/17/19 14:35 Random Glucose 111 mg/dL (74-106) H 03/17/19 14:35 Calcium 9.0 mg/dL (8.5-10.1) 03/17/19 14:35 Total Bilirubin 0.4 mg/dL (0.2-1) 03/17/19 14:35 AST 21 U/L (15-37) 03/17/19 14:35 ALT 24 U/L (13-61) 03/17/19 14:35 Alkaline Phosphatase 61 U/L (45-117) 03/17/19 14:35 Total Protein 7.2 g/dl (6.4-8.2) 03/17/19 14:35 Albumin 3.6 g/dl (3.4-5.0) 03/17/19 14:35 RPR Titer Nonreactive (NONREACTIVE) 03/17/19 14:35 HIV 1&2 Ag/Ab, 4th Gen Non reactive (Non Reactive) 03/18/19 10:00 HIV 1&2 Antibody Screen Cancelled 03/17/19 14:35 HIV P24 Antigen Cancelled 03/17/19 14:35 lab noted - Treatment Hospital Course: Detox Protocol Followed, Detoxed Safely, Responded well, Discharged Condition Good, Rehab Referral Accepted Patient has Accepted a Rehab Referral to: [facility] - Medication Discharge Medications: Ambulatory Orders Quetiapine Fumarate [Seroquel -] 50 mg PO HS 03/17/19 - Diagnosis (1) Alcohol dependence with uncomplicated withdrawal Current Visit: Yes Status: Acute (2) Nicotine dependence Current Visit: Yes Status: Acute Qualifiers: Nicotine product type: cigarettes Substance use status: in withdrawal Qualified Code(s): F17.213 - Nicotine dependence, cigarettes, with withdrawal (3) Substance induced mood disorder Current Visit: Yes Status: Suspected (4) Asthma Current Visit: Yes Status: Chronic Qualifiers: Asthma severity: mild Asthma persistence: intermittent Asthma complication type: uncomplicated Qualified Code(s): J45.20 - Mild intermittent asthma, uncomplicated (5) GERD (gastroesophageal reflux disease) Current Visit: Yes Status: Chronic Qualifiers: Esophagitis presence: without esophagitis Qualified Code(s): K21.9 - Gastro -esophageal reflux disease without esophagitis (6) Hypertension Current Visit: Yes Status: Chronic Qualifiers: Hypertension type: essential hypertension Qualified Code(s): I10 - Essential (primary) hypertension - AMA Did Patient Leave Against Medical Advice: No CIWA Score - CIWA Score Nausea/Vomitin-No Nausea/No Vomiting Muscle Tremors: 2 Anxiety: 1-Mildly Anxious Agitation: 2 Paroxysmal Sweats: No Perspiration Orientation: 0-Oriented Tacttile Disturbances: 0-None Auditory Disturbances: 0-None Visual Disturbances: 0-None Headache: 0-None Present CIWA-Ar Total Score: 5
== END 2019-03-21 13:00 | disposition other institution (70) | DRG 774 ==
LOC: YASAS 11:44 → Y3N 14:39
PROVIDERS: ADMIT Surgery; ATTEND Surgery
PROC: HZ2ZZZZ Detoxification Services for Substance Abuse Treatment (ICD-10-PCS; principal; 2019-03-17)
DX: F10.230 Alcohol dependence with withdrawal, uncomplicated (principal); F14.20 Cocaine dependence, uncomplicated; F12.20 Cannabis dependence, uncomplicated; F17.213 Nicotine dependence, cigarettes, with withdrawal; F19.24 Other psychoactive substance dependence with psychoactive substance-induced mood disorder; F31.9 Bipolar disorder, unspecified; I10 Essential (primary) hypertension; J45.20 Mild intermittent asthma, uncomplicated; K21.9 Gastro-esophageal reflux disease without esophagitis; G47.00 Insomnia, unspecified; Z91.5 Personal history of self-harm
CPT/HCPCS: 36415; 80053; 85027; 86593; 87389

== ENCOUNTER 2019-03-21 13:10 | Inpatient (IN) | payer OTHER ==
--- NOTE | 2019-03-21 12:33 | HP ---
[facility] Rehab Assess/Revision - Admission History Admitted to Rehab from: [facility] Date of Admission to Rehab: 03/21/19 - Findings Detox History & Physical reviewed: Yes Concur with findings: Yes Comments/Additional Findings: tranferred from detox to rehab admission as per protocol Inpatient Rehab Admission - Rehab Decision to Admit Inpatient rehab admission?: Yes - Initial Determination Are CD services needed?: Yes Free of communicable disease: Yes Not in need of hospitalization: Yes - Rehab Admission Criteria Previous failed treatment: Yes Poor recovery environment: Yes Comorbidities: Yes Lacks judgement: No Patient is meeting Inpatient Rehab admission criteria:: Yes
[~2019-03-21 13:10] MED LIST: ACETAMINOPHEN 325 MG TABLET (FP) PO PRN; IBUPROFEN 400 MG TABLET (FP) PO PRN; LOPERAMIDE HCL 2 MG CAPSULE PO PRN; MAG HYDROX/AL HYDROX/SIMETH 30 ML UNIT-DOSE CUP PO PRN; MAGNESIUM CITRATE 300 ML BOTTLE PO PRN; MAGNESIUM HYDROX 2400MG/30ML ORAL SUSPENSION 30 ML CUP PO PRN; MENTHOL/PHENOL 1 EACH UD MM PRN; P-EPHED 60MG/TRIPROLIDI 2.5MG TABLET PO PRN; guaiFENesin 200 MG/10 ML 10 ML UNIT-DOSE CUPS PO PRN
--- NOTE | 2019-03-21 19:22 | PN ---
[facility] Progress Note Note: Pt was admitted today from for rehab. Pt decided to leave and not continue rehab. No reason was given. This was the discharge summary from , copied here: 53 years old male admitted on 03/17/19 for acute alcohol withdrawal sx management doing well with librium detox regimen no complication through out the detox stay seen by psychiatrist begin seroquel and zoloft tolerate well denies dizziness no shortness of breathe - Physical Exam Results Vital Signs: Vital Signs Temperature 97.8 F 03/21/19 09:09 Pulse Rate 75 03/21/19 09:09 Respiratory Rate 18 03/21/19 09:09 Blood Pressure 152/94 03/21/19 09:09 O2 Sat by Pulse Oximetry (%) Pertinent Admission Physical Exam Findings: alcohol withdrawal sx Laboratory Last Values WBC 5.1 K/mm3 (4.0-10.0) 03/17/19 14:35 RBC 5.31 M/mm3 (4.00-5.60) 03/17/19 14:35 Hgb 14.9 GM/dL (11.7-16.9) 03/17/19 14:35 Hct 45.8 % (35.4-49) 03/17/19 14:35 MCV 86.3 fl (80-96) 03/17/19 14:35 MCH 28.0 pg (25.7-33.7) 03/17/19 14:35 MCHC 32.5 g/dl (32.0-35.9) 03/17/19 14:35 RDW 15.9 % (11.9-15.9) 03/17/19 14:35 Plt Count 170 K/MM3 (134-434) 03/17/19 14:35 MPV 11.2 fl (7.5-11.1) H 03/17/19 14:35 Sodium 142 mmol/L (136-145) 03/17/19 14:35 Potassium 4.2 mmol/L (3.5-5.1) 03/17/19 14:35 Chloride 108 mmol/L (98-107) H 03/17/19 14:35 Carbon Dioxide 27 mmol/L (21-32) 03/17/19 14:35 Anion Gap 7 MMOL/L (8-16) L 03/17/19 14:35 BUN 15.8 mg/dL (7-18) 03/17/19 14:35 Creatinine 1.2 mg/dL (0.55-1.3) 03/17/19 14:35 Est GFR (CKD-EPI)AfAm 78.43 03/17/19 14:35 Est GFR (CKD-EPI)NonAf 67.67 03/17/19 14:35 Random Glucose 111 mg/dL (74-106) H 03/17/19 14:35 Calcium 9.0 mg/dL (8.5-10.1) 03/17/19 14:35 Total Bilirubin 0.4 mg/dL (0.2-1) 03/17/19 14:35 AST 21 U/L (15-37) 03/17/19 14:35 ALT 24 U/L (13-61) 03/17/19 14:35 Alkaline Phosphatase 61 U/L (45-117) 03/17/19 14:35 Total Protein 7.2 g/dl (6.4-8.2) 03/17/19 14:35 Albumin 3.6 g/dl (3.4-5.0) 03/17/19 14:35 RPR Titer Nonreactive (NONREACTIVE) 03/17/19 14:35 HIV 1&2 Ag/Ab, 4th Gen Non reactive (Non Reactive) 03/18/19 10:00 HIV 1&2 Antibody Screen Cancelled 03/17/19 14:35 HIV P24 Antigen Cancelled 03/17/19 14:35 - Diagnosis (1) Alcohol dependence with uncomplicated withdrawal Current Visit: Yes Status: Acute
[2019-03-21] MEDS ORDERED: THIAMINE HCL 100 MG TABLET (FP) PO SCH (22:00)
[2019-03-21] MEDS ORDERED: MELATONIN 5 MG TABLETS PO PRN (22:00)
[2019-03-21] MEDS ORDERED: MIRTAZAPINE 15 MG TABLET (FP) PO SCH (22:00)
[2019-03-22] MEDS ORDERED: PRENATAL VITAMINS W/ FOLIC ACID TABLET (FP) PO SCH (10:00)
== END 2019-03-21 19:34 | disposition left against medical advice (07) | DRG 770 ==
LOC: YASAS 13:10 → Y5N 13:11
PROVIDERS: ADMIT Neuromusculoskeletal Medicine & OMM; ATTEND Neuromusculoskeletal Medicine & OMM
PROC: HZ42ZZZ Group Counseling for Substance Abuse Treatment, Cognitive-Behavioral (ICD-10-PCS; principal; 2019-03-21)
DX: F10.20 Alcohol dependence, uncomplicated (principal); F14.20 Cocaine dependence, uncomplicated; F12.20 Cannabis dependence, uncomplicated; F17.210 Nicotine dependence, cigarettes, uncomplicated; K21.9 Gastro-esophageal reflux disease without esophagitis

== ENCOUNTER 2021-11-06 12:22 | Inpatient (IN) | payer OTHER ==
[2021-11-06] MEDS ORDERED: chlordiazePOXIDE HCL 25 MG CAPSULE PO PRN (13:02)
[2021-11-06] MEDS ORDERED: MAGNESIUM HYDROX 2400MG/30ML ORAL SUSPENSION 30 ML CUP PO PRN (13:02)
[2021-11-06] MEDS ORDERED: DICYCLOMINE HCL 10 MG CAPSULE PO PRN (13:02)
[2021-11-06] MEDS ORDERED: ACETAMINOPHEN 325 MG TABLET (FP) PO PRN ×2 (13:02)
[2021-11-06] MEDS ORDERED: METHOCARBAMOL 500 MG TABLET PO PRN (13:02)
[2021-11-06] MEDS ORDERED: BISMUTH SUBSALICYLATE 524 MG/30 ML PO PRN (13:02)
[2021-11-06] MEDS ORDERED: MENTHOL/PHENOL 1 EACH UD MM PRN (13:02)
[2021-11-06] MEDS ORDERED: MAGNESIUM CITRATE 300 ML BOTTLE PO PRN (13:02)
[2021-11-06] MEDS ORDERED: IBUPROFEN 400 MG TABLET (FP) PO PRN (13:02)
[2021-11-06] MEDS ORDERED: ONDANSETRON *ODT* 4 MG TABLET SL PRN (13:02)
[2021-11-06] MEDS ORDERED: LOPERAMIDE HCL 2 MG CAPSULE PO PRN (13:02)
[2021-11-06] MEDS ORDERED: NICOTINE 10 MG CARTRIDGE (INHALER) IH PRN (13:02)
[2021-11-06] MEDS ORDERED: MAG HYDROX/AL HYDROX/SIMETH 30 ML UNIT-DOSE CUP PO PRN (13:02)
[2021-11-06 14:37] VITALS: BMI 25.9
[2021-11-06] MEDS: chlordiazePOXIDE HCL 25 MG CAPSULE PO SCH ×2 (17:58→22:08)
[2021-11-06] MEDS: hydrOXYzine PAMOATE 25 MG CAPSULE (FP) PO SCH ×3 (17:59→22:08)
[2021-11-06] MEDS: NICOTINE 14 MG/24 HOURS TOPICAL PATCH TD SCH (18:08)
[2021-11-06] MEDS: PRENATAL VITAMINS W/ FOLIC ACID TABLET (FP) PO SCH (18:09)
[2021-11-06 19:50] LABS: BLOOD UREA NITROGEN 12.7 mg/dL (7-18); CALCIUM 9.2 mg/dL (8.5-10.1)
[2021-11-06 19:51] LABS: ALBUMIN 3.6 g/dl (3.4-5.0)
[2021-11-06 19:53] LABS: CREATININE 1.2 mg/dL (0.55-1.3)
[2021-11-06 19:55] LABS: BILIRUBIN,TOTAL 0.4 mg/dL (0.2-1)
[2021-11-06 19:58] LABS: HEMATOCRIT 45.7 % (35.4-49); HEMOGLOBIN 14.9 GM/dL (11.7-16.9); MCH 28.3 pg (25.7-33.7); MCHC 32.6 g/dl (32.0-35.9); MEAN PLT VOLUME 10.9 fl (7.5-11.1); RBC 5.25 M/mm3 (4.00-5.60); RDW 14.7 % (11.9-15.9); WHITE BLOOD COUNT 3.4 K/mm3 (4.0-10.0)
[2021-11-06 20:16] LABS: PLATELET COUNT 175 10^3/uL (134-434)
[2021-11-06 21:53] VITALS: PULSE 62
[2021-11-06] MEDS ORDERED: MELATONIN 5 MG TABLETS PO SCH (22:00)
[2021-11-06] MEDS ORDERED: THIAMINE HCL 100 MG TABLET (FP) PO SCH (22:00)
[2021-11-07] MEDS: chlordiazePOXIDE HCL 25 MG CAPSULE PO SCH ×2 (05:39→10:38)
[2021-11-07] MEDS: hydrOXYzine PAMOATE 25 MG CAPSULE (FP) PO SCH ×2 (05:39→10:38)
[2021-11-07 06:59] VITALS: BP 130/90; TEMP 96.8
[2021-11-07] MEDS: NICOTINE 14 MG/24 HOURS TOPICAL PATCH TD SCH (10:38)
[2021-11-07] MEDS: PRENATAL VITAMINS W/ FOLIC ACID TABLET (FP) PO SCH (10:38)
[2021-11-08] MEDS ORDERED: chlordiazePOXIDE HCL 25 MG CAPSULE PO SCH (05:00)
[2021-11-09] MEDS ORDERED: chlordiazePOXIDE HCL 10 MG CAPSULE PO PRN
[2021-11-09 00:07] LABS: SARS-CoV-2 NAA Not Detected (Not Detected)
[2021-11-09] MEDS ORDERED: chlordiazePOXIDE HCL 10 MG CAPSULE PO SCH (05:00)
[2021-11-10] MEDS ORDERED: chlordiazePOXIDE HCL 10 MG CAPSULE PO SCH (05:00)
[2021-11-11] MEDS ORDERED: chlordiazePOXIDE HCL 10 MG CAPSULE PO ONE (05:00)
== END 2021-11-07 11:00 | disposition left against medical advice (07) | DRG 770 ==
LOC: YASAS 12:22 → Y6N 16:37
PROVIDERS: ADMIT Allergy & Immunology; ATTEND Allergy & Immunology
PROC: HZ2ZZZZ Detoxification Services for Substance Abuse Treatment (ICD-10-PCS; principal; 2021-11-06)
DX: F10.230 Alcohol dependence with withdrawal, uncomplicated (principal); F14.20 Cocaine dependence, uncomplicated; F12.20 Cannabis dependence, uncomplicated; F17.210 Nicotine dependence, cigarettes, uncomplicated; J45.909 Unspecified asthma, uncomplicated; L40.9 Psoriasis, unspecified; M54.59 Other low back pain; G89.29 Other chronic pain; Z28.310 Unvaccinated for COVID-19; Z62.810 Personal history of physical and sexual abuse in childhood; Z98.84 Bariatric surgery status; Z56.0 Unemployment, unspecified
CPT/HCPCS: 36415; 80053; 85027; 86780; 87811; C9803-CS; U0003; U0005